=== PATIENT | female | born 1980 | race African-American/Black ===

== ENCOUNTER 2017-03-30 15:18 | Inpatient (IN) | payer OTHER ==
[2017-03-30 16:18] VITALS: BMI 29.3
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
[2017-03-30] MEDS ORDERED: METHADONE HCL 10 MG TABLET (FOR DETOX USE ONLY) PO ONE ×2 (19:45→23:00)
[2017-03-30] MEDS ORDERED: MENTHOL/PHENOL 1 EACH UD MM PRN (19:45)
[2017-03-30] MEDS ORDERED: MAGNESIUM CITRATE 300 ML BOTTLE PO PRN (19:45)
[2017-03-30] MEDS ORDERED: P-EPHED 60MG/TRIPROLIDI 2.5MG TABLET PO PRN (19:45)
[2017-03-30] MEDS ORDERED: MAG HYDROX/AL HYDROX/SIMETH 30 ML UNIT-DOSE CUP PO PRN (19:45)
[2017-03-30] MEDS ORDERED: MAGNESIUM HYDROX 2400MG/30ML ORAL SUSPENSION 30 ML CUP PO PRN (19:45)
[2017-03-30] MEDS ORDERED: IBUPROFEN 400 MG TABLET (FP) PO PRN (19:45)
[2017-03-30] MEDS ORDERED: chlordiazePOXIDE HCL 25 MG CAPSULE PO PRN (19:45)
[2017-03-30] MEDS ORDERED: LOPERAMIDE HCL 2 MG CAPSULE PO PRN (19:45)
[2017-03-30] MEDS ORDERED: guaiFENesin/D-METHORPHAN HB 10 ML UNIT-DOSE CUPS PO PRN (19:45)
[2017-03-30] MEDS ORDERED: chlordiazePOXIDE HCL 25 MG CAPSULE PO ONE (19:45)
[2017-03-30] MEDS: ACETAMINOPHEN 325 MG TABLET (FP) PO PRN (20:37)
[2017-03-30 22:04] LABS: URINE APPEARANCE TURBID; URINE BLOOD NEGATIVE (NEGATIVE); URINE COLOR AMBER; URINE GLUCOSE (UA) NEGATIVE (NEGATIVE); URINE KETONE NEGATIVE (NEGATIVE); URINE LEUK ESTERASE TRACE (NEGATIVE); URINE NITRITE NEGATIVE (NEGATIVE); URINE UROBILINOGEN 4.0 E.U/dl mg/dL (0.2-1.0)
[2017-03-30 22:15] LABS: URINE PROTEIN 1+ (NEGATIVE)
[2017-03-30] MEDS: chlordiazePOXIDE HCL 25 MG CAPSULE PO SCH (22:26)
[2017-03-30] MEDS: THIAMINE HCL 100 MG TABLET (FP) PO SCH (22:26)
[2017-03-30 22:44] LABS: URINE MUCUS MANY; URINE RBC 14 /hpf (0-3); URINE WBC 2 /hpf (3-5)
[2017-03-31] MEDS: chlordiazePOXIDE HCL 25 MG CAPSULE PO SCH ×4 (05:41→22:28)
[2017-03-31] MEDS ORDERED: METHADONE HCL 10 MG TABLET (FOR DETOX USE ONLY) PO SCH (10:00)
[2017-03-31 10:01] LABS: MCH 26.9 pg (25.7-33.7); MCHC 32.2 g/dl (32.0-36.0); MEAN CELL VOLUME 83.6 fl (80-96); MEAN PLT VOLUME 6.8 fl (7.5-11.1); PLATELET COUNT 250 K/MM3 (134-434); RDW 22.4 % (11.6-15.6); WHITE BLOOD COUNT 4.2 K/mm3 (4.0-10.0)
[2017-03-31 10:25] LABS: ALBUMIN 2.7 g/dl (3.4-5.0); ALK PHOS 77 U/L (45-117); ANION GAP 5 (8-16); BILIRUBIN,TOTAL 0.4 mg/dL (0.2-1.0); CALCIUM 8.3 mg/dL (8.5-10.1); CO2 30 mmol/L (21-32); CREATININE 0.8 mg/dL (0.55-1.02); GLUCOSE,RANDOM 89 mg/dL (74-106); SGOT/AST 23 U/L (15-37); SGPT/ALT 26 U/L (12-78); TOT PROT 5.9 g/dl (6.4-8.2)
[2017-03-31] MEDS: PRENATAL VITAMINS W/ FOLIC ACID TABLET (FP) PO SCH (10:35)
--- NOTE | 2017-03-31 12:11 | PN ---
S CIWA - CIWA Score Nausea/Vomitin Muscle Tremors: 3 Anxiety: 2 Agitation: 2 Paroxysmal Sweats: 1-Minimal Palms Moist Orientation: 0-Oriented Tacttile Disturbances: 1-Very Mild Itch/Numbness Auditory Disturbances: 1-Very Mild Visual Disturbances: 1-Very Mild Sensitivity Headache: 2-Mild CIWA-Ar Total Score: 16 BHS COWS - Scale Resting Pulse: 1= [place] 81-100 Sweatin= Chills/Flushing Restless Observation: 3= Extraneous Movement Pupil Size: 1= Pupils >than Normal Bone or Joint Aches: 2= Severe Diffuse Aches Runny Nose/ Eye Tearin= Runny Nose/Eyes GI Upset > 30mins: 2= Nausea/Diarrhea Tremor Observation of Outstretched Hands: 2= Slight Tremor Visible Yawning Observation: 1= 1-2x During Session Anxiety or Irritability: 2=Irritable/Anxious Goose Flesh Skin: 0=Smooth Skin COWS Score: 17 S Progress Note (SOAP) Subjective: ALERT,IRRITABLE,ANXIOUS,INTERRUPTED SLEEP,TREMOR,PAIN IN THE BODY AND BACK Objective: 03/31/17 12:08 Vital Signs Temperature 96.4 F L 03/31/17 10:03 Pulse Rate 81 03/31/17 10:03 Respiratory Rate 20 03/31/17 10:03 Blood Pressure 119/69 03/31/17 10:03 O2 Sat by Pulse Oximetry (%) EKG NSR,PROLONG QT Laboratory Last Values WBC 4.2 K/mm3 (4.0-10.0) 03/31/17 08:00 RBC 3.88 M/mm3 (3.60-5.2) 03/31/17 08:00 Hgb 10.4 GM/dL (10.7-15.3) L 03/31/17 08:00 Hct 32.4 % (32.4-45.2) 03/31/17 08:00 MCV 83.6 fl (80-96) 03/31/17 08:00 MCH 26.9 pg (25.7-33.7) 03/31/17 08:00 MCHC 32.2 g/dl (32.0-36.0) 03/31/17 08:00 RDW 22.4 % (11.6-15.6) H 03/31/17 08:00 Plt Count 250 K/MM3 (134-434) 03/31/17 08:00 MPV 6.8 fl (7.5-11.1) L 03/31/17 08:00 Sodium 139 mmol/L (136-145) 03/31/17 08:00 Potassium 4.0 mmol/L (3.5-5.1) 03/31/17 08:00 Chloride 104 mmol/L (98-107) 03/31/17 08:00 Carbon Dioxide 30 mmol/L (21-32) 03/31/17 08:00 Anion Gap 5 (8-16) L 03/31/17 08:00 BUN 12 mg/dL (7-18) D 03/31/17 08:00 Creatinine 0.8 mg/dL (0.55-1.02) 03/31/17 08:00 Creat Clearance w eGFR > 60 (>60) 03/31/17 08:00 Random Glucose 89 mg/dL (74-106) 03/31/17 08:00 Calcium 8.3 mg/dL (8.5-10.1) L 03/31/17 08:00 Total Bilirubin 0.4 mg/dL (0.2-1.0) D 03/31/17 08:00 AST 23 U/L (15-37) D 03/31/17 08:00 ALT 26 U/L (12-78) D 03/31/17 08:00 Alkaline Phosphatase 77 U/L (45-117) 03/31/17 08:00 Total Protein 5.9 g/dl (6.4-8.2) L D 03/31/17 08:00 Albumin 2.7 g/dl (3.4-5.0) L D 03/31/17 08:00 Urine Color [place] 03/30/17 21:45 Urine Appearance Turbid 03/30/17 21:45 Urine pH 5.0 (5.0-8.0) 03/30/17 21:45 Ur Specific [place] >= 1.030 (1.005-1.025) H 03/30/17 21:45 Urine Protein 1+ (NEGATIVE) H 03/30/17 21:45 Urine Glucose (UA) Negative (NEGATIVE) 03/30/17 21:45 Urine Ketones Negative (NEGATIVE) 03/30/17 21:45 Urine Blood Negative (NEGATIVE) 03/30/17 21:45 Urine Nitrite Negative (NEGATIVE) 03/30/17 21:45 Urine Bilirubin 2.0 (NEGATIVE) 03/30/17 21:45 Urine Urobilinogen 4.0 e.u/dl mg/dL (0.2-1.0) H 03/30/17 21:45 Ur Leukocyte Esterase Trace (NEGATIVE) 03/30/17 21:45 Urine RBC 14 /hpf (0-3) 03/30/17 21:45 Urine WBC 2 /hpf (3-5) 03/30/17 21:45 Ur Epithelial Cells Many /hpf (FEW) 03/30/17 21:45 Urine Mucus Many 03/30/17 21:45 Assessment: 03/31/17 12:10 WITHDRAWAL SYMPTOM Plan: CONTINUE DETOX
--- NOTE | 2017-03-31 16:32 | CONSULT ---
[facility] Psychiatric Consult - Data Date of interview: 03/31/17 Admission source: [facility] Identifying data: Readmission to [facility] for this 36 y/o AA female seeking detox treatment on for heroin,cocaine (crack),cannabis and alcohol dependence.Patient is single without children,domiciled and self-reported as employed. Substance Abuse History: Discussed with the patient.She incates that this [facility] report is accurate : Smoking Cessation. Smoking history: Current every day smoker. Have you smoked in the past 12 months: Yes. Aproximately how many cigarettes per day: 4. Hx Chewing Tobacco Use: No. Initiated information on smoking cessation: Yes. 'Breaking Loose' booklet given: 03/30/17. - Substance & Tx. History. Hx Alcohol Use: Yes. Hx Substance Use: Yes. Substance Use Type : Cocaine, Heroin, Marijuana. Hx Substance Use Treatment: Yes (DETOX: 2013; DENIES RECENT REHAB ADMISSION ). - Substances Abused. Heroin. Route: Inhalation. Frequency: Daily. Amount used: 3 bags. Age of first use: 26. Date of Last Use: 03/30/17. Crack. Route: Smoking. Frequency: Daily. Amount used: 1 bag. Age of first use: 35. Date of Last Use: 03/29/17. Marijuana/Hashish. Route: Smoking. Frequency: 1-3 times last 30 days. Amount used: 1 bag. Age of first use: 26. Date of Last Use: 03/28/17 Medical History: Bronchial asthma and anemia. Psychiatric History: Patient is a disorganized and unreliable historian.She admits to one psychiatric hospitalization.Discharged two months ago from [facility]] in [place].Diagnosed with Schizoaffective Disorder.Ms Brambila reports that she was managed with a regimen of geodon + lexapro (doses nor recalled).Did not follow with OPD care and did not fill her scripts.Patient endorses one suicide attempt via wrist-cutting years ago. Physical/Sexual Abuse/Trauma History: Patient denies history of abuse. Additional Comment: Urine Drug Screen Results: THC-Marijuana, RUPAL-Cocaine, OPI- Opiates, TCA-Tricyclic Antidepressant.Noted. Mental Status Exam - Mental Status Exam Alert and Oriented to: Time, Place, Person Cognitive Function: Grossly Intact Patient Appearance: Unkempt, Disheveled (obese) Mood: Nervous, Withdrawn Affect: Normal Range Patient Behavior: Sedated, Fatigued, Cooperative Speech Pattern: Clear Voice Loudness: Normal Thought Process: Goal Oriented Thought Disorder: Not Present Hallucinations: Denies Suicidal Ideation: Denies Homicidal Ideation: Denies Insight/Judgement: Poor Sleep: Well Appetite: Good Muscle strength/Tone: Normal Gait/Station: Normal Psychiatric Findings - Problem List ([place] 1, 2,3) (1) Alcohol dependence with uncomplicated withdrawal Current Visit: Yes Status: Acute (2) Cannabis dependence Current Visit: Yes Status: Acute (3) Opioid dependence with withdrawal Current Visit: Yes Status: Chronic (4) Cocaine dependence, uncomplicated Current Visit: Yes Status: Acute (5) Substance induced mood disorder Current Visit: Yes Status: Acute (6) Asthma Current Visit: Yes Status: Chronic (7) Schizoaffective disorder Current Visit: Yes Status: Chronic Comment: Self-report. - Initial Treatment Plan Initial Treatment Plan: Psychoeducation.Detoxification.Review of pharmacy claims : not helpful.No information.Medications to be resumed when information becomes available.Observation.
[2017-03-31] MEDS: ACETAMINOPHEN 325 MG TABLET (FP) PO PRN (18:20)
[2017-03-31] MEDS: THIAMINE HCL 100 MG TABLET (FP) PO SCH (22:27)
[2017-03-31] MEDS: diphenhydrAMINE HCL 50 MG CAPSULE PO PRN (22:28)
[2017-04-01] MEDS: chlordiazePOXIDE HCL 25 MG CAPSULE PO SCH ×3 (05:50→17:39)
--- NOTE | 2017-04-01 08:10 | EKG ---
Test Reason : Blood Pressure : / mmHG Vent. Rate : 077 BPM Atrial Rate : 077 BPM P-R Int : 148 ms QRS Dur : 076 ms QT Int : 430 ms P-R-T Axes : 064 068 059 degrees QTc Int : 486 ms NORMAL SINUS RHYTHM POSSIBLE LEFT ATRIAL ENLARGEMENT PROLONGED QT ABNORMAL ECG NO PREVIOUS ECGS AVAILABLE Confirmed by JENAE CEJA, CAMDEN ([id number]) on 04/01/2017 8:09:40 AM Referred By: Toney Hodges Confirmed By:CAMDEN EMANUEL MD
[2017-04-01] MEDS: ACETAMINOPHEN 325 MG TABLET (FP) PO PRN (09:55)
[2017-04-01] MEDS: PRENATAL VITAMINS W/ FOLIC ACID TABLET (FP) PO SCH (10:25)
[2017-04-01] MEDS: METHADONE HCL 5 MG TABLET (FOR DETOX USE ONLY) PO SCH (10:25)
--- NOTE | 2017-04-01 11:34 | PN ---
S CIWA - CIWA Score Nausea/Vomitin Muscle Tremors: 3 Anxiety: 2 Agitation: 2 Paroxysmal Sweats: 1-Minimal Palms Moist Orientation: 0-Oriented Tacttile Disturbances: 1-Very Mild Itch/Numbness Auditory Disturbances: 1-Very Mild Visual Disturbances: 1-Very Mild Sensitivity Headache: 2-Mild CIWA-Ar Total Score: 16 BHS COWS - Scale Resting Pulse: 1= [place] 81-100 Sweatin= Chills/Flushing Restless Observation: 3= Extraneous Movement Pupil Size: 1= Pupils >than Normal Bone or Joint Aches: 2= Severe Diffuse Aches Runny Nose/ Eye Tearin= Nasal Congestion GI Upset > 30mins: 2= Nausea/Diarrhea Tremor Observation of Outstretched Hands: 2= Slight Tremor Visible Yawning Observation: 1= 1-2x During Session Anxiety or Irritability: 2=Irritable/Anxious Goose Flesh Skin: 0=Smooth Skin COWS Score: 16 S Progress Note (SOAP) Subjective: ALERT,IRRITABLE,ANXIOUS,INTERRUPTED SLEEP,TREMOR,PAIN IN THE BODY Objective: 04/01/17 11:32 Vital Signs Temperature 98.2 F 04/01/17 10:27 Pulse Rate 89 04/01/17 10:27 Respiratory Rate 16 04/01/17 10:27 Blood Pressure 123/74 04/01/17 10:27 O2 Sat by Pulse Oximetry (%) Laboratory Last Values WBC 4.2 K/mm3 (4.0-10.0) 03/31/17 08:00 RBC 3.88 M/mm3 (3.60-5.2) 03/31/17 08:00 Hgb 10.4 GM/dL (10.7-15.3) L 03/31/17 08:00 Hct 32.4 % (32.4-45.2) 03/31/17 08:00 MCV 83.6 fl (80-96) 03/31/17 08:00 MCH 26.9 pg (25.7-33.7) 03/31/17 08:00 MCHC 32.2 g/dl (32.0-36.0) 03/31/17 08:00 RDW 22.4 % (11.6-15.6) H 03/31/17 08:00 Plt Count 250 K/MM3 (134-434) 03/31/17 08:00 MPV 6.8 fl (7.5-11.1) L 03/31/17 08:00 Sodium 139 mmol/L (136-145) 03/31/17 08:00 Potassium 4.0 mmol/L (3.5-5.1) 03/31/17 08:00 Chloride 104 mmol/L (98-107) 03/31/17 08:00 Carbon Dioxide 30 mmol/L (21-32) 03/31/17 08:00 Anion Gap 5 (8-16) L 03/31/17 08:00 BUN 12 mg/dL (7-18) D 03/31/17 08:00 Creatinine 0.8 mg/dL (0.55-1.02) 03/31/17 08:00 Creat Clearance w eGFR > 60 (>60) 03/31/17 08:00 Random Glucose 89 mg/dL (74-106) 03/31/17 08:00 Calcium 8.3 mg/dL (8.5-10.1) L 03/31/17 08:00 Total Bilirubin 0.4 mg/dL (0.2-1.0) D 03/31/17 08:00 AST 23 U/L (15-37) D 03/31/17 08:00 ALT 26 U/L (12-78) D 03/31/17 08:00 Alkaline Phosphatase 77 U/L (45-117) 03/31/17 08:00 Total Protein 5.9 g/dl (6.4-8.2) L D 03/31/17 08:00 Albumin 2.7 g/dl (3.4-5.0) L D 03/31/17 08:00 Urine Color Cori 03/30/17 21:45 Urine Appearance Turbid 03/30/17 21:45 Urine pH 5.0 (5.0-8.0) 03/30/17 21:45 Ur Specific [place] >= 1.030 (1.005-1.025) H 03/30/17 21:45 Urine Protein 1+ (NEGATIVE) H 03/30/17 21:45 Urine Glucose (UA) Negative (NEGATIVE) 03/30/17 21:45 Urine Ketones Negative (NEGATIVE) 03/30/17 21:45 Urine Blood Negative (NEGATIVE) 03/30/17 21:45 Urine Nitrite Negative (NEGATIVE) 03/30/17 21:45 Urine Bilirubin 2.0 (NEGATIVE) 03/30/17 21:45 Urine Urobilinogen 4.0 e.u/dl mg/dL (0.2-1.0) H 03/30/17 21:45 Ur Leukocyte Esterase Trace (NEGATIVE) 03/30/17 21:45 Urine RBC 14 /hpf (0-3) 03/30/17 21:45 Urine WBC 2 /hpf (3-5) 03/30/17 21:45 Ur Epithelial Cells Many /hpf (FEW) 03/30/17 21:45 Urine Mucus Many 03/30/17 21:45 RPR Titer Nonreactive (NONREACTIVE) 03/31/17 08:00 Assessment: 04/01/17 11:34 WITHDRAWAL SYMPTOM Plan: CONTINUE DETOX
[2017-04-01] MEDS: THIAMINE HCL 100 MG TABLET (FP) PO SCH (22:49)
[2017-04-01] MEDS: chlordiazePOXIDE 5 MG CAPSULE PO SCH (22:49)
[2017-04-01] MEDS: diphenhydrAMINE HCL 50 MG CAPSULE PO PRN (22:49)
[2017-04-02] MEDS: chlordiazePOXIDE 5 MG CAPSULE PO SCH ×3 (06:55→17:47)
[2017-04-02] MEDS: PRENATAL VITAMINS W/ FOLIC ACID TABLET (FP) PO SCH (10:43)
[2017-04-02] MEDS: METHADONE HCL 5 MG TABLET (FOR DETOX USE ONLY) PO SCH (10:44)
[2017-04-02] MEDS: ACETAMINOPHEN 325 MG TABLET (FP) PO PRN (10:46)
--- NOTE | 2017-04-02 10:55 | PN ---
S Progress Note (SOAP) Subjective: alert,irritable,anxious,interrupted sleep,pain in body,back Objective: 04/02/17 10:54 Vital Signs Temperature 97.9 F 04/02/17 09:52 Pulse Rate 98 H 04/02/17 09:52 Respiratory Rate 16 04/02/17 09:52 Blood Pressure 138/81 04/02/17 09:52 O2 Sat by Pulse Oximetry (%) Assessment: 04/02/17 10:54 withdrawal symptom Plan: continue detox,psychiatric reevaluation for medications
[2017-04-02] MEDS: chlordiazePOXIDE HCL 10 MG CAPSULE PO SCH (22:16)
[2017-04-02] MEDS: THIAMINE HCL 100 MG TABLET (FP) PO SCH (22:16)
[2017-04-02] MEDS: diphenhydrAMINE HCL 50 MG CAPSULE PO PRN (22:17)
[2017-04-03] MEDS: chlordiazePOXIDE HCL 10 MG CAPSULE PO SCH ×3 (05:46→16:50)
[2017-04-03] MEDS: ACETAMINOPHEN 325 MG TABLET (FP) PO PRN (07:43)
[2017-04-03] MEDS ORDERED: METHADONE HCL 10 MG TABLET (FOR DETOX USE ONLY) PO SCH (10:00)
--- NOTE | 2017-04-03 10:21 | PN ---
S Progress Note (SOAP) Subjective: ALERT,IRRITABLE,ANXIOUS,INTERRUPTED SLEEP Objective: 04/03/17 10:20 Vital Signs Temperature 96.6 F L 04/03/17 06:00 Pulse Rate 99 H 04/03/17 06:00 Respiratory Rate 18 04/03/17 06:00 Blood Pressure 138/82 04/03/17 06:00 O2 Sat by Pulse Oximetry (%) Assessment: 04/03/17 10:21 WITHDRAWAL SYMPTOM Plan: CONTINUE DETOX
[2017-04-03] MEDS: PRENATAL VITAMINS W/ FOLIC ACID TABLET (FP) PO SCH (10:28)
[2017-04-03] MEDS: hydrOXYzine PAMOATE 50 MG CAPSULE (FP) PO PRN ×2 (16:50→22:15)
[2017-04-03] MEDS: THIAMINE HCL 100 MG TABLET (FP) PO SCH (22:15)
[2017-04-04] MEDS ORDERED: METHADONE HCL 5 MG TABLET (FOR DETOX USE ONLY) PO SCH (06:00)
--- NOTE | 2017-04-04 08:24 | DS ---
[facility] Detox Discharge Summary Admission Date: 03/30/17 Discharge Date: 04/04/17 - History Present History: Alcohol Dependence, Cannabis Dependence, Cocaine Dependence, Opioid Dependence Additional Comments: FOLLOW UP WITH AFTER CARE PROGRAM ARRANGEMENT Pertinent Past History: ASTHMA SCHIZOAFFECTIVE DISORDER - Physical Exam Results Vital Signs: Vital Signs Temperature 98.4 F 04/04/17 06:20 Pulse Rate 89 04/04/17 06:20 Respiratory Rate 18 04/04/17 06:20 Blood Pressure 134/69 04/04/17 06:20 O2 Sat by Pulse Oximetry (%) Pertinent Admission Physical Exam Findings: WITHDRAWAL SYMPTOM - Treatment Hospital Course: Detox Protocol Followed, Detoxed Safely, Responded well, Discharged Condition Good, Rehab Referral Accepted Patient has Accepted a Rehab Referral to: [facility] - Medication Discharge Medications: Ambulatory Orders NK [No Known Home Medication] 09/10/13 - Diagnosis (1) Alcohol dependence with uncomplicated withdrawal Current Visit: Yes Status: Acute (2) Cannabis dependence Current Visit: Yes Status: Acute (3) Cocaine dependence, uncomplicated Current Visit: Yes Status: Acute (4) Asthma Current Visit: Yes Status: Chronic (5) Opioid dependence with withdrawal Current Visit: Yes Status: Chronic (6) Schizoaffective disorder Current Visit: Yes Status: Chronic - AMA Did Patient Leave Against Medical Advice: No
[2017-04-04 09:56] VITALS: BP 124/72; PULSE 108; TEMP 98.2
== END 2017-04-04 10:37 | disposition home or self-care (01) | DRG 897 ==
LOC: YASAS 15:18 → Y6N 18:57
PROVIDERS: ADMIT Internal Medicine; ATTEND Internal Medicine
PROC: HZ2ZZZZ Detoxification Services for Substance Abuse Treatment (ICD-10-PCS; principal; 2017-03-30)
DX: F11.23 Opioid dependence with withdrawal (principal); F14.20 Cocaine dependence, uncomplicated; F10.230 Alcohol dependence with withdrawal, uncomplicated; F12.20 Cannabis dependence, uncomplicated; F17.210 Nicotine dependence, cigarettes, uncomplicated; F25.9 Schizoaffective disorder, unspecified; F19.24 Other psychoactive substance dependence with psychoactive substance-induced mood disorder; J45.909 Unspecified asthma, uncomplicated; D64.9 Anemia, unspecified; R00.0 Tachycardia, unspecified; Z88.0 Allergy status to penicillin
CPT/HCPCS: 36415; 80053; 81003; 81015; 85027; 86593; 93005; 93010

== ENCOUNTER 2019-03-05 17:25 | Inpatient (IN) | payer OTHER ==
[2019-03-05 18:05] VITALS: BMI 29.9
--- NOTE | 2019-03-05 20:23 | HP ---
CIWA Score - Admission Criteria OASAS Guidelines: Admission for Medically Managed Detox: Requires at least one of the followin. CIWA greater than 12 2. Seizures within the past 24 hours 3. Delirium tremens within the past 24 hours 4. Hallucinations within the past 24 hours 5. Acute intervention needed for co occurring medical disorder 6. Acute intervention needed for co occurring psychiatric disorder 7. Severe withdrawal that cannot be handled at a lower level of care (continued vomiting, continued diarrhea, abnormal vital signs) requiring intravenous medication and/or fluids 8. Admission ROS S - HPI Chief Complaint: alcohol and crack /cocaine rehab Allergies/Adverse Reactions: Allergies Allergy/AdvReac Type Severity Reaction Status Date / Time cephalexin monohydrate Allergy Severe Swelling Verified 03/05/19 17:48 [From Keflex] Penicillins Allergy Severe Rash Verified 03/05/19 17:48 History of Present Illness: Patient is a 38 yo female is here seeking inpatient rehab for alcohol and crack /cocaine. Reports prior hx of heroin dependence and reports currently in remission. Patient reports completed alcohol detox at [facility]. PMHX: Asthma (childhood), Anemia. Psych: bipolar Denies SI/HI or hx suicide attempt x 1 nine years ago. Exam Limitations: No Limitations - Ebola screening Have you traveled outside of the country in the last 21 days: No Have you had contact with anyone from an Ebola affected area: No Do you have a fever: No - Review of Systems Constitutional: No Symptoms Reported EENT: reports: No Symptoms Reported Respiratory: reports: No Symptoms reported Cardiac: reports: No Symptoms Reported GI: reports: No Symptoms Reported : reports: No Symptoms Reported Musculoskeletal: reports: No Symptoms Reported Integumentary: reports: Pruritus Neuro: reports: Headache Endocrine: reports: No Symptoms Reported Hematology: reports: No Symptoms Reported Psychiatric: reports: Orientated x3, Anxious Other Systems: Reviewed and Negative Patient History - Patient Medical History Hx Anemia: Yes (Not on iron medication) Hx Asthma: Yes (On Albuterol) Hx Chronic Obstructive Pulmonary Disease (COPD): No Hx Cancer: No Hx Cardiac Disorders: No Hx Congestive Heart Failure: No Hx Hypertension: No Hx Hypercholesterolemia: No Hx Pacemaker: No HX Cerebrovascular Accident: No Hx Seizures: No Hx Dementia: No Hx Diabetes: No Hx Gastrointestinal Disorders: No Hx Liver Disease: No Hx Genitourinary Disorders: No Hx Sexually Transmitted Disorders: No Hx Renal Disease (ESRD): No Hx Thyroid Disease: No Hx Human Immunodeficiency Virus (HIV): No (Negative 2016) Hx Hepatitis C: No Hx Depression: Yes (Risperdal) Hx Suicide Attempt: Yes (x1 in 1999) Hx Bipolar Disorder: Yes Hx Schizophrenia: No - Patient Surgical History Past Surgical History: No Hx Neurologic Surgery: No Hx Cataract Extraction: No Hx Cardiac Surgery: No Hx Lung Surgery: No Hx Breast Surgery: No Hx Breast Biopsy: No Hx Abdominal Surgery: No Hx Appendectomy: No Hx Cholecystectomy: No Hx Genitourinary Surgery: No Hx Section: No Hx Orthopedic Surgery: No Anesthesia Reaction: No - PPD History Documented Results: Negative w/o proof Date: 04/01/17 Results: 0 PPD to be Administered?: No - Reproductive History Last Menstrual Period: 10/14/17 Patient : No - Smoking Cessation Smoking history: Current every day smoker Have you smoked in the past 12 months: Yes Aproximately how many cigarettes per day: 8 Hx Chewing Tobacco Use: No Initiated information on smoking cessation: Yes 'Breaking Loose' booklet given: 03/05/19 - Substance & Tx. History Hx Alcohol Use: Yes Hx Substance Use: Yes Substance Use Type: Alcohol, Cocaine Hx Substance Use Treatment: Yes ([facility] completed ETOH detox today ) - Substances abused Crack Substance route: Smoking Frequency: 3-6 times per week Amount used: 500 hundred Age of first use: 33 Date of last use: 03/05/19 Alcohol Substance route: Oral Frequency: Daily Amount used: 8 beers and 5 shots of liqour Age of first use: 15 Date of last use: 03/04/19 Cocaine Substance route: Inhalation Frequency: 3-6 times per week Amount used: 50 dollars Age of first use: 23 Date of last use: 03/03/19 Family Disease History - Family Disease History Family Disease History: Diabetes: Father, Other: Mother (Alcoholic) Admission Physical Exam S - Vital Signs Vital Signs: Vital Signs - 24 hr 03/05/19 03/05/19 17:53 19:35 Temperature 97.7 F 97.7 F Pulse Rate 75 75 Respiratory 16 16 Rate Blood Pressure 112/80 112/80 - Physical General Appearance: Yes: Appropriately Dressed, Irritable HEENTM: Yes: EOMI, Hearing grossly Normal, Normal ENT Inspection, Normocephalic , Normal Voice, MEG[place], Pharynx Normal, Tm's normal Respiratory: Yes: Chest Non-Tender, Lungs Clear, Normal Breath Sounds, No Respiratory Distress, No Accessory Muscle Use Neck: Yes: Within Normal Limits Breast: Yes: Breast Exam Deferred Cardiology: Yes: Regular Rhythm, Regular Rate Abdominal: Yes: Normal Bowel Sounds, Non Tender, Flat, Soft Genitourinary: Yes: Within Normal Limits Back: Yes: Normal Inspection Musculoskeletal: Yes: full range of Motion, Gait Steady, Pelvis Stable Extremities: Yes: Normal Capillary Refill, Normal Inspection, Normal Range of Motion, Delayed Capillary Refill Neurological: Yes: focus puller II-XII NML intact, Fully Oriented, Alert, Motor Strength 5/5, Depressed Affect Integumentary: Yes: Normal Color, Other (+ lesion multiple non infected on back of righ ear lobe and bilateral lower extremites) Lymphatic: Yes: Within Normal Limits - Diagnostic (1) Psychiatric disorder Current Visit: Yes Status: Suspected (2) Cocaine dependence, uncomplicated Current Visit: Yes Status: Acute (3) Alcohol dependence Current Visit: Yes Status: Chronic Qualifiers: Substance use status: uncomplicated Qualified Code(s): F10.20 - Alcohol dependence, uncomplicated (4) Anemia Current Visit: Yes Status: Chronic Qualifiers: Anemia type: iron deficiency (5) Asthma Current Visit: Yes Status: Chronic (6) Cocaine dependence Current Visit: Yes Status: Chronic Qualifiers: Substance use status: uncomplicated Qualified Code(s): F14.20 - Cocaine dependence, uncomplicated (7) Pruritus Current Visit: Yes Status: Acute Breathalyzer - Breathalyzer Breathalyzer: 0 Urine Drug Screen - Test Device Lot number: [id number] Expiration date: 12/24/20 - Control Is test valid?: Yes - Results Drug screen NEGATIVE: No Urine drug screen results: THC-Marijuana, RUPAL-Cocaine, BZO-Benzodiazepines Inpatient Rehab Admission - Rehab Decision to Admit Inpatient rehab admission?: Yes - Initial Determination Are CD services needed?: Yes Free of communicable disease: Yes Not in need of hospitalization: Yes - Rehab Admission Criteria Previous failed treatment: Yes Poor recovery environment: Yes Comorbidities: Yes Lacks judgement: Yes Patient is meeting Inpatient Rehab admission criteria:: Yes
[2019-03-05] MEDS ORDERED: P-EPHED 60MG/TRIPROLIDI 2.5MG TABLET PO PRN (20:33)
[2019-03-05] MEDS ORDERED: LOPERAMIDE HCL 2 MG CAPSULE PO PRN (20:33)
[2019-03-05] MEDS ORDERED: NICOTINE POLACRILEX 2 MG GUM BC PRN (20:33)
[2019-03-05] MEDS ORDERED: MAGNESIUM HYDROX 2400MG/30ML ORAL SUSPENSION 30 ML CUP PO PRN (20:33)
[2019-03-05] MEDS ORDERED: MAG HYDROX/AL HYDROX/SIMETH 30 ML UNIT-DOSE CUP PO PRN (20:33)
[2019-03-05] MEDS ORDERED: guaiFENesin 200 MG/10 ML 10 ML UNIT-DOSE CUPS PO PRN (20:33)
[2019-03-05] MEDS ORDERED: MAGNESIUM CITRATE 300 ML BOTTLE PO PRN (20:33)
[2019-03-05] MEDS ORDERED: MENTHOL/PHENOL 1 EACH UD MM PRN (20:33)
[2019-03-05] MEDS: MELATONIN 5 MG TABLETS PO PRN (21:49)
[2019-03-05] MEDS: THIAMINE HCL 100 MG TABLET (FP) PO SCH (21:50)
[2019-03-05] MEDS: hydrOXYzine HCL 25 MG TABLET (FP) PO PRN (21:50)
[2019-03-05] MEDS: IBUPROFEN 400 MG TABLET (FP) PO PRN (22:02)
[2019-03-06] MEDS: IBUPROFEN 400 MG TABLET (FP) PO PRN (06:58)
--- NOTE | 2019-03-06 07:02 | PN ---
S Progress Note Note: PATIENT COMPLAINS OF NAUSEA. DENIES VOMITING AT THIS TIME Vital Signs Temperature 97.8 F 03/06/19 06:41 Pulse Rate 76 03/06/19 06:41 Respiratory Rate 17 03/06/19 06:41 Blood Pressure 106/75 03/06/19 06:41 O2 Sat by Pulse Oximetry (%) ACTION: ONDANSETRON (ZOFRAN ODT) 4MG SL ORDERED
[2019-03-06] MEDS ORDERED: ONDANSETRON *ODT* 4 MG TABLET SL ONE (08:00)
[2019-03-06] MEDS: PRENATAL VITAMINS W/ FOLIC ACID TABLET (FP) PO SCH (09:16)
[2019-03-06] MEDS: NICOTINE 14 MG/24 HOURS TOPICAL PATCH TD SCH (09:17)
[2019-03-06 10:14] LABS: HEMATOCRIT 27.7 % (32.4-45.2); HEMOGLOBIN 8.7 GM/dL (10.7-15.3); MCH 22.3 pg (25.7-33.7); MCHC 31.5 g/dl (32.0-36.0); MEAN PLT VOLUME 6.9 fl (7.5-11.1); RDW 28.3 % (11.6-15.6); WHITE BLOOD COUNT 2.9 K/mm3 (4.0-10.0)
[2019-03-06 10:35] LABS: ALBUMIN 3.2 g/dl (3.4-5.0); BILIRUBIN,TOTAL 0.5 mg/dL (0.2-1); BLOOD UREA NITROGEN 14.3 mg/dL (7-18); CALCIUM 8.5 mg/dL (8.5-10.1); CREATININE 0.8 mg/dL (0.55-1.3); POTASSIUM 4.3 mmol/L (3.5-5.1); TOT PROT 6.6 g/dl (6.4-8.2)
[2019-03-06 10:38] LABS: PLATELET COUNT 349 K/MM3 (134-434)
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
[2019-03-06] MEDS: hydrOXYzine HCL 25 MG TABLET (FP) PO PRN ×2 (12:34→17:41)
[2019-03-06] MEDS: ACETAMINOPHEN 325 MG TABLET (FP) PO PRN ×2 (12:34→17:41)
[2019-03-06] MEDS ORDERED: SIMETHICONE 80 MG TAB.CHEW (FP) PO PRN (12:39)
[2019-03-06] MEDS: THIAMINE HCL 100 MG TABLET (FP) PO SCH (22:01)
[2019-03-06] MEDS: OLANZapine 5 MG TABLET PO SCH (22:01)
[2019-03-06] MEDS: NAPROXEN 500 MG TABLET (FP) PO SCH (22:01)
[2019-03-06 22:54] LABS: EPI CELLS 1.2 /HPF (0-5/HPF); HYALINE CASTS 0 /lpf (0-8); PH,URINE 5.5 (5.0-8.0); URINE APPEARANCE CLEAR; URINE BACTERIA 11.5 /hpf (NEGATIVE); URINE BILIRUBIN NEGATIVE (NEGATIVE); URINE COLOR YELLOW; URINE GLUCOSE (UA) NEGATIVE (NEGATIVE); URINE KETONE NEGATIVE (NEGATIVE); URINE LEUK ESTERASE NEGATIVE (NEGATIVE); URINE NITRITE NEGATIVE (NEGATIVE); URINE PROTEIN NEGATIVE (NEGATIVE); URINE RBC 216 /hpf (0-4); URINE WBC 1 /hpf (0-5)
[2019-03-07] MEDS: PRENATAL VITAMINS W/ FOLIC ACID TABLET (FP) PO SCH (09:49)
[2019-03-07] MEDS: NICOTINE 14 MG/24 HOURS TOPICAL PATCH TD SCH (09:49)
[2019-03-07] MEDS: NAPROXEN 500 MG TABLET (FP) PO SCH ×2 (09:49→21:27)
[2019-03-07] MEDS ORDERED: PT OWN MED DRAWER 7, Y5N ONE (09:50)
[2019-03-07] MEDS: hydrOXYzine HCL 25 MG TABLET (FP) PO PRN (09:50)
--- NOTE | 2019-03-07 13:39 | PN ---
[facility] Progress Note Note: Laboratory Tests 03/05/19 03/06/19 03/06/19 19:35 07:00 07:00 WBC 2.9 L RBC 3.90 Hgb 8.7 L Hct 27.7 L MCV 71.0 L MCH 22.3 L MCHC 31.5 L RDW 28.3 H Plt Count 349 MPV 6.9 L Sodium 140 Potassium 4.3 Chloride 107 Carbon Dioxide 29 Anion Gap 4 L BUN 14.3 Creatinine 0.8 Est GFR (CKD-EPI)AfAm 109.16 Est GFR (CKD-EPI)NonAf 94.18 Random Glucose 81 Calcium 8.5 Total Bilirubin 0.5 AST 23 ALT 22 Alkaline Phosphatase 64 Total Protein 6.6 Albumin 3.2 L Urine Color Urine Appearance Urine pH Ur Specific [place] Urine Protein Urine Glucose (UA) Urine Ketones Urine Blood Urine Nitrite Urine Bilirubin Urine Urobilinogen Ur Leukocyte Esterase Urine WBC (Auto) Urine RBC (Auto) Urine Casts (Auto) U Epithel Cells (Auto) Urine Bacteria (Auto) POC Urine HCG, Qual Negative RPR Titer TB Test (QFT) Nil TB Test (QFT) Mitogen TB Test (QFT) Antigen TB Test (QFT) TB Positive Criteria 03/06/19 03/06/19 03/06/19 07:00 07:00 18:21 WBC RBC Hgb Hct MCV MCH MCHC RDW Plt Count MPV Sodium Potassium Chloride Carbon Dioxide Anion Gap BUN Creatinine Est GFR (CKD-EPI)AfAm Est GFR (CKD-EPI)NonAf Random Glucose Calcium Total Bilirubin AST ALT Alkaline Phosphatase Total Protein Albumin Urine Color Yellow Urine Appearance Clear Urine pH 5.5 D Ur Specific [place] 1.022 Urine Protein Negative Urine Glucose (UA) Negative Urine Ketones Negative Urine Blood 3+ H Urine Nitrite Negative Urine Bilirubin Negative Urine Urobilinogen 1.0 Ur Leukocyte Esterase Negative Urine WBC (Auto) 1 Urine RBC (Auto) 216 Urine Casts (Auto) 0 U Epithel Cells (Auto) 1.2 Urine Bacteria (Auto) 11.5 POC Urine HCG, Qual RPR Titer Nonreactive TB Test (QFT) Nil Cancelled TB Test (QFT) Mitogen Cancelled TB Test (QFT) Antigen Cancelled TB Test (QFT) Cancelled TB Positive Criteria Cancelled Vital Signs Temperature 97.8 F 03/06/19 06:41 Pulse Rate 76 03/06/19 06:41 Respiratory Rate 18 03/07/19 07:10 Blood Pressure 106/75 03/06/19 06:41 O2 Sat by Pulse Oximetry (%) Labs reviewed. Patient currently has menstrual cycle which it explains blood in urine. Patient also has hx of anemia. Patient denies chest pain, sob and dizziness PE; alert and oriented x 3 skin warm and dry +perrla, eoms intact bl, conjunctivae pink bl ext full rom, amb ad stacia a/p: anemia continue vitamins repeat cbc on 03/10/19 monitor clinically
[2019-03-07] MEDS: DOCUSATE SODIUM 100 MG CAPSULE (FP) PO SCH (21:27)
[2019-03-07] MEDS: THIAMINE HCL 100 MG TABLET (FP) PO SCH (21:27)
[2019-03-07] MEDS: OLANZapine 5 MG TABLET PO SCH (21:27)
[2019-03-08] MEDS: DOCUSATE SODIUM 100 MG CAPSULE (FP) PO SCH ×3 (06:52→22:13)
[2019-03-08] MEDS: PRENATAL VITAMINS W/ FOLIC ACID TABLET (FP) PO SCH (09:06)
[2019-03-08] MEDS: NICOTINE 14 MG/24 HOURS TOPICAL PATCH TD SCH (09:06)
[2019-03-08] MEDS: NAPROXEN 500 MG TABLET (FP) PO SCH ×2 (09:06→22:13)
--- NOTE | 2019-03-08 09:31 | EKG ---
Test Reason : Blood Pressure : / mmHG Vent. Rate : 067 BPM Atrial Rate : 067 BPM P-R Int : 156 ms QRS Dur : 074 ms QT Int : 440 ms P-R-T Axes : 057 056 051 degrees QTc Int : 464 ms NORMAL SINUS RHYTHM WITH SINUS ARRHYTHMIA NORMAL ECG WHEN COMPARED WITH ECG OF 31-OCT-2017 22:14, VENT. RATE HAS DECREASED BY 44 BPM Confirmed by JENAE CEJA, CAMDEN ([id number]) on 03/08/2019 9:31:36 AM Referred By: Confirmed By:CAMDEN EMANUEL MD
[2019-03-08] MEDS: ACETAMINOPHEN 325 MG TABLET (FP) PO PRN (13:10)
--- NOTE | 2019-03-08 14:16 | PN ---
Psychiatric Progress Note Vital Signs: Vital Signs Period Temp Pulse Resp BP Sys/Boss Pulse Ox Last 24 Hr 18-18 Date of Session: 03/08/19 Chief Complaint:: " I didn't ask to see you." HPI: Patient admitted to 3E for alcohol and cocaine dependence co-morbid schizoaffective disorder. ROS: Patient is coherent, alert and oriented X3. Current Medications: Active Medications Generic Name Dose Route Start Last Admin Trade Name Freq PRN Reason Stop Dose Admin Acetaminophen 650 mg 03/05/19 20:33 03/08/19 13:10 Tylenol - PO 650 mg Q4H PRN Administration FEVER Al Hydroxide/Mg Hydroxide 30 ml 03/05/19 20:33 Mylanta Oral Suspension - PO Q6H PRN DYSPEPSIA Docusate Sodium 100 mg 03/07/19 22:00 03/08/19 13:08 Colace - PO 100 mg TID ANAHI Administration Eucalyptus/Menthol/Phenol/Sorbitol 1 each 03/05/19 20:33 Cepastat Lozenge - MM Q4H PRN SORE THROAT Guaifenesin 10 ml 03/05/19 20:33 Robitussin - PO Q6H PRN COUGH Hydroxyzine HCl 25 mg 03/05/19 20:39 03/07/19 09:50 Atarax - PO 25 mg Q12H PRN Administration FOR ITCHING Loperamide HCl 4 mg 03/05/19 20:33 Imodium - PO Q6H PRN DIARRHEA Magnesium Citrate 300 ml 03/05/19 20:33 Citroma - PO Q48H PRN CONSTIPATION Magnesium Hydroxide 30 ml 03/05/19 20:33 03/07/19 22:19 Milk Of Magnesia - PO 30 ml DAILY PRN Administration CONSTIPATION Melatonin 5 mg 03/05/19 22:00 03/05/19 21:49 Melatonin PO 5 mg HS PRN Administration INSOMNIA Naproxen 500 mg 03/06/19 22:00 03/08/19 09:06 Naprosyn - PO 500 mg BID ANAHI Administration Nicotine 14 mg 03/06/19 10:00 03/08/19 09:06 Nicoderm Patch - TD 14 mg DAILY ANAHI Administration Nicotine Polacrilex 2 mg 03/05/19 20:33 Nicorette Gum - BC Q2H PRN NICOTINE REPLACEMENT RX Olanzapine 5 mg 03/06/19 22:00 03/07/19 21:27 Zyprexa - PO 5 mg HS ANAHI Administration Multivit/Folic Acid/Iron 1 tab 03/06/19 10:00 03/08/19 09:06 Vitamins (Sjr) - PO 1 tab DAILY ANAHI Administration Pseudoephedrine/Triprolidine 1 combo 03/05/19 20:33 Actifed - PO TID PRN NASAL CONGESTION Simethicone 80 mg 03/06/19 12:39 03/07/19 09:50 Mylicon - PO 80 mg QID PRN Administration GAS Thiamine HCl 100 mg 03/05/19 22:00 03/07/19 21:27 Vitamin B1 - PO 100 mg HS ANAHI Administration Medication(s) Change(s): No. Current Side Effect: No Lab tests ordered: No Lab tests reviewed: Yes Provider note:: Casino Runner approached patient for psychiatric consultation. Patient stated to financial underwriter, " I didn't ask to see you but we can talk." Patient focused on being acceped to care home house after discharge. She reports feeling slightly irritable and states the vistaril is not effective. Patient prefers to accept benadryl and is requesting benadryl 50mg. Casino Runner recommended benadryl 25 mg q6h and patient replied, " No thats not enough. Its ok, you can leave how it is." Patient became slightly irritable concerning her situation of not having a home , lack of family support and vistaril medication dosage. Patient c/o constipation and was recommended by financial underwriter to drink water. Patient denies auditory/visual hallucinations and paranoia. States she feels safe on the unit. Casino Runner attempted to increase zyprexa 5mg to 7.5mg but patient refused. Stated zyprexa 5mg is working well for her. Patient denies auditory/visual hallucinations, suicidal/homicidal ideation. Total face to face time:: 30 Mental Status Exam - Mental Status Exam Alert and Oriented to: Time, Place, Person Cognitive Function: Good Patient Appearance: Well Groomed Mood: Irritable Affect: Mood Congruent Patient Behavior: Cooperative Speech Pattern: Appropriate Voice Loudness: Normal Thought Process: Goal Oriented Thought Disorder: Not Present Hallucinations: Denies Suicidal Ideation: Denies Homicidal Ideation: Denies Insight/Judgement: Poor Sleep: Fair Appetite: Fair Muscle strength/Tone: Normal Gait/Station: Normal Psychiatric Treatment Plan - Problem List (1) Alcohol dependence Current Visit: Yes Qualifiers: Substance use status: uncomplicated Qualified Code(s): F10.20 - Alcohol dependence, uncomplicated (2) Cocaine dependence Current Visit: Yes (3) Nicotine dependence Current Visit: Yes (4) Schizoaffective disorder Current Visit: Yes Comment: Self-report. (5) Substance-induced sleep disorder Current Visit: Yes
[2019-03-08] MEDS: hydrOXYzine HCL 25 MG TABLET (FP) PO PRN (17:36)
[2019-03-08] MEDS: THIAMINE HCL 100 MG TABLET (FP) PO SCH (22:13)
[2019-03-08] MEDS: OLANZapine 5 MG TABLET PO SCH (22:13)
[2019-03-09] MEDS ORDERED: PT OWN MED DRAWER 7, Y5N ONE (03:20)
[2019-03-09] MEDS: DOCUSATE SODIUM 100 MG CAPSULE (FP) PO SCH ×3 (07:37→21:23)
[2019-03-09] MEDS: NICOTINE 14 MG/24 HOURS TOPICAL PATCH TD SCH (10:07)
[2019-03-09] MEDS: PRENATAL VITAMINS W/ FOLIC ACID TABLET (FP) PO SCH (10:07)
[2019-03-09] MEDS: NAPROXEN 500 MG TABLET (FP) PO SCH ×2 (10:07→21:22)
[2019-03-09] MEDS: hydrOXYzine HCL 25 MG TABLET (FP) PO PRN ×2 (13:41→21:22)
[2019-03-09] MEDS: ACETAMINOPHEN 325 MG TABLET (FP) PO PRN (18:22)
[2019-03-09] MEDS: OLANZapine 5 MG TABLET PO SCH (21:22)
[2019-03-09] MEDS: THIAMINE HCL 100 MG TABLET (FP) PO SCH (21:22)
[2019-03-10] MEDS: DOCUSATE SODIUM 100 MG CAPSULE (FP) PO SCH ×3 (06:42→21:12)
[2019-03-10] MEDS: PRENATAL VITAMINS W/ FOLIC ACID TABLET (FP) PO SCH (10:40)
[2019-03-10] MEDS: NAPROXEN 500 MG TABLET (FP) PO SCH ×2 (10:41→21:12)
[2019-03-10] MEDS: NICOTINE 14 MG/24 HOURS TOPICAL PATCH TD SCH (10:41)
[2019-03-10 14:47] LABS: BASO % 0.4 % (0-2.0); EOS % 2.7 % (0-4.5); HEMOGLOBIN 8.8 GM/dL (10.7-15.3); LYMPH % 42.5 % (8-40); MCH 22.7 pg (25.7-33.7); MCHC 31.5 g/dl (32.0-36.0); MEAN PLT VOLUME 7.1 fl (7.5-11.1); MONO % 8.8 % (3.8-10.2); NEUT % 45.6 % (42.8-82.8); PLATELET COUNT 331 K/MM3 (134-434); RBC 3.88 M/mm3 (3.60-5.2); RDW 28.1 % (11.6-15.6); WHITE BLOOD COUNT 3.2 K/mm3 (4.0-10.0)
[2019-03-10] MEDS: hydrOXYzine HCL 25 MG TABLET (FP) PO PRN (19:52)
[2019-03-10] MEDS: ACETAMINOPHEN 325 MG TABLET (FP) PO PRN (19:52)
[2019-03-10 19:59] LABS: ANISOCYTOSIS 2+
[2019-03-10] MEDS: OLANZapine 5 MG TABLET PO SCH (21:12)
[2019-03-10] MEDS: THIAMINE HCL 100 MG TABLET (FP) PO SCH (21:12)
[2019-03-11] MEDS: DOCUSATE SODIUM 100 MG CAPSULE (FP) PO SCH ×3 (07:13→21:54)
[2019-03-11] MEDS: NICOTINE 14 MG/24 HOURS TOPICAL PATCH TD SCH (09:29)
[2019-03-11] MEDS: NAPROXEN 500 MG TABLET (FP) PO SCH ×2 (09:29→21:53)
[2019-03-11] MEDS: PRENATAL VITAMINS W/ FOLIC ACID TABLET (FP) PO SCH (09:29)
[2019-03-11] MEDS: FERROUS SO4 325 MG TABLET (FP) PO SCH ×2 (12:49→17:50)
[2019-03-11] MEDS: hydrOXYzine HCL 25 MG TABLET (FP) PO PRN (17:50)
[2019-03-11] MEDS: THIAMINE HCL 100 MG TABLET (FP) PO SCH (21:53)
[2019-03-11] MEDS: OLANZapine 5 MG TABLET PO SCH (21:53)
[2019-03-11] MEDS: MELATONIN 5 MG TABLETS PO PRN (21:54)
[2019-03-12] MEDS: ACETAMINOPHEN 325 MG TABLET (FP) PO PRN (01:39)
[2019-03-12 01:43] VITALS: PULSE 80
[2019-03-12 06:51] VITALS: BP 118/80; TEMP 97.9
[2019-03-12] MEDS: DOCUSATE SODIUM 100 MG CAPSULE (FP) PO SCH ×3 (06:53→21:15)
[2019-03-12] MEDS: FERROUS SO4 325 MG TABLET (FP) PO SCH ×3 (07:25→17:35)
[2019-03-12] MEDS: NICOTINE 14 MG/24 HOURS TOPICAL PATCH TD SCH (09:44)
[2019-03-12] MEDS: NAPROXEN 500 MG TABLET (FP) PO SCH ×2 (09:44→21:14)
[2019-03-12] MEDS: PRENATAL VITAMINS W/ FOLIC ACID TABLET (FP) PO SCH (09:44)
[2019-03-12] MEDS ORDERED: PT OWN MED DRAWER 7, Y5N ONE (15:49)
[2019-03-12] MEDS: hydrOXYzine HCL 25 MG TABLET (FP) PO PRN ×2 (15:50→21:14)
[2019-03-12] MEDS: THIAMINE HCL 100 MG TABLET (FP) PO SCH (21:14)
[2019-03-12] MEDS: OLANZapine 5 MG TABLET PO SCH (21:14)
[2019-03-13] MEDS: ACETAMINOPHEN 325 MG TABLET (FP) PO PRN (02:46)
[2019-03-13] MEDS: DOCUSATE SODIUM 100 MG CAPSULE (FP) PO SCH (07:04)
[2019-03-13] MEDS: FERROUS SO4 325 MG TABLET (FP) PO SCH (07:20)
--- NOTE | 2019-03-13 09:16 | PN ---
S Progress Note Note: Psychiatric nurse practitioner note: Patient scheduled for discharge today. A 30 day prescription of Zyprexa 5mg was electronically sent to [facility], [address] [place] [address], [id number].
--- NOTE | 2019-03-13 09:17 | PN ---
[facility] Progress Note (SOAP) Subjective: Patient to be discharged today. Hospital Course: Patient attended groups, had individual sessions with the counselor, was adherent to the treatment plan and the medication regimen. Objective: General: In no apparent distress, resting comfortably in bed HEENTM: Yes: Normocephalic, Normal Voice, PERRLA, Pharynx Normal, Tm's normal Respiratory: Respirations easy and unlabored Lungs Clear, No Accessory Muscle Use Neck: supple Breast: Breast Exam Deferred Cardiology: Regular Rhythm, Regular Rate, S1, S2 audible Abdominal: Positive Bowel Sounds, Non Tender, Flat, Soft Back: spine aligned, non-tender Musculoskeletal: ll range of Motion, Gait Steady, Pelvis Stable Extremities: Brisk Capillary Refill, Full Range of Motion Neurological: electronic assembler group leader II-XII intact, Fully Oriented, Alert, Motor Strength 5/5, Integumentary: clear, warm, dry, color consistent throughout trunk and extremities. Lymphatic: non-palpable 03/13/19 09:16 CBC, BMP 03/10/19 11:20 03/06/19 07:00 Vital Signs (72 hours) 03/11/19 03/11/19 03/11/19 00:30 03:30 07:18 Temperature 97.8 F Pulse Rate 92 H Respiratory 16 16 18 Rate Blood Pressure 116/79 03/12/19 03/12/19 03/12/19 00:30 01:42 03:30 Temperature Pulse Rate 80 Respiratory 18 18 18 Rate Blood Pressure 106/69 03/12/19 03/13/19 03/13/19 06:51 03:30 07:26 Temperature 97.9 F Pulse Rate 80 Respiratory 18 18 18 Rate Blood Pressure 118/80 03/13/19 09:18 Assessment: Medically stable for discharge Discharge Dx: opioid Dependence Cannabis Dependence Cocaine Dependence Asthma Anemia 03/13/19 09:22 Plan: Continuation of on-going care: Patient will receive aftercare and primary care at [place] [facility]. Prescription sent to pharmacy.
[2019-03-13] MEDS: NAPROXEN 500 MG TABLET (FP) PO SCH (09:30)
[2019-03-13] MEDS: NICOTINE 14 MG/24 HOURS TOPICAL PATCH TD SCH (09:30)
[2019-03-13] MEDS: PRENATAL VITAMINS W/ FOLIC ACID TABLET (FP) PO SCH (09:31)
== END 2019-03-13 09:40 | disposition home or self-care (01) | DRG 895 ==
LOC: YASAS 17:25 → Y3E 20:50
PROVIDERS: ADMIT Neuromusculoskeletal Medicine & OMM; ATTEND Neuromusculoskeletal Medicine & OMM
PROC: HZ42ZZZ Group Counseling for Substance Abuse Treatment, Cognitive-Behavioral (ICD-10-PCS; principal; 2019-03-05)
DX: F10.20 Alcohol dependence, uncomplicated (principal); F14.20 Cocaine dependence, uncomplicated; F19.282 Other psychoactive substance dependence with psychoactive substance-induced sleep disorder; F17.210 Nicotine dependence, cigarettes, uncomplicated; F25.9 Schizoaffective disorder, unspecified; F31.9 Bipolar disorder, unspecified; D50.9 Iron deficiency anemia, unspecified; J45.909 Unspecified asthma, uncomplicated; L29.8 Other pruritus; Z88.0 Allergy status to penicillin; Z88.1 Allergy status to other antibiotic agents; Z91.5 Personal history of self-harm; Z59.0 Homelessness
CPT/HCPCS: 36415; 80053; 81003; 81025; 85025; 85027; 86480; 86593; 93005; 93010; Q0162

== ENCOUNTER 2019-09-09 17:52 | Inpatient (IN) | payer MEDICARE, OTHER ==
[2019-09-09 19:20] VITALS: BMI 28.2
--- NOTE | 2019-09-10 01:41 | HP ---
CIWA Score Nausea/Vomitin (vomiting x 4) Muscle Tremors: 4-Moderate,w/Arms Extend Anxiety: 4-Mod. Anxious/Guarded Agitation: 1-Slight > Activity Paroxysmal Sweats: 2 Orientation: 0-Oriented Tacttile Disturbances: 0-None Auditory Disturbances: 0-None Visual Disturbances: 0-None Headache: 0-None Present CIWA-Ar Total Score: 14 - Admission Criteria OASAS Guidelines: Admission for Medically Managed Detox: Requires at least one of the followin. CIWA greater than 12 2. Seizures within the past 24 hours 3. Delirium tremens within the past 24 hours 4. Hallucinations within the past 24 hours 5. Acute intervention needed for co occurring medical disorder 6. Acute intervention needed for co occurring psychiatric disorder 7. Severe withdrawal that cannot be handled at a lower level of care (continued vomiting, continued diarrhea, abnormal vital signs) requiring intravenous medication and/or fluids 8. Admitting History and Physical - Past Medical History ...LMP: 10/14/17 - Smoking History Smoking history: Current every day smoker Have you smoked in the past 12 months: Yes Aproximately how many cigarettes per day: 8 - Alcohol/Substance Use Hx Alcohol Use: Yes Admission ROS [facility] Chief Complaint: Alcohol withdrawal symptoms Allergies/Adverse Reactions: Allergies Allergy/AdvReac Type Severity Reaction Status Date / Time cephalexin monohydrate Allergy Severe Swelling Verified 09/09/19 19:03 [From Keflex] Penicillins Allergy Severe Rash Verified 09/09/19 19:03 History of Present Illness: 38 years old female with a long history of alcohol dependence is seeking admission to detox. Patient has had multiple admissions to [facility] and reports insignificant period of sobriety. She reports medical history of anemia, asthma and psych. history of Bipolar disorder and depression. She reports suicide attempt in 1999 and denies suicidal ideation at this time Exam Limitations: No Limitations - Ebola screening Have you traveled outside of the country in the last 21 days: No (N) Have you had contact with anyone from an Ebola affected area: No Do you have a fever: No - Review of Systems Constitutional: Chills, Malaise, Night Sweats, Changes in sleep EENT: reports: No Symptoms Reported Respiratory: reports: Cough Cardiac: reports: No Symptoms Reported GI: reports: Poor Appetite, Poor Fluid Intake, Vomiting : reports: No Symptoms Reported Musculoskeletal: reports: No Symptoms Reported Integumentary: reports: Dryness, Flushing Neuro: reports: Tremors Endocrine: reports: No Symptoms Reported Hematology: reports: No Symptoms Reported Psychiatric: reports: Mood/Affect Appropiate, Orientated x3 Other Systems: Reviewed and Negative Patient History - Patient Medical History Hx Anemia: Yes (Not on iron medication) Hx Asthma: Yes (On Albuterol) Hx Chronic Obstructive Pulmonary Disease (COPD): No Hx Cancer: No Hx Cardiac Disorders: No Hx Congestive Heart Failure: No Hx Hypertension: No Hx Hypercholesterolemia: No Hx Pacemaker: No HX Cerebrovascular Accident: No Hx Seizures: No Hx Dementia: No Hx Diabetes: No Hx Gastrointestinal Disorders: No Hx Liver Disease: No Hx Genitourinary Disorders: No Hx Sexually Transmitted Disorders: No Hx Renal Disease (ESRD): No Hx Thyroid Disease: No Hx Human Immunodeficiency Virus (HIV): No (Negative 2016) Hx Hepatitis C: No Hx Depression: Yes (Risperdal) Hx Suicide Attempt: Yes (x1 in 1999) Hx Bipolar Disorder: Yes Hx Schizophrenia: No - Patient Surgical History Past Surgical History: No Hx Neurologic Surgery: No Hx Cataract Extraction: No Hx Cardiac Surgery: No Hx Lung Surgery: No Hx Breast Surgery: No Hx Breast Biopsy: No Hx Abdominal Surgery: No Hx Appendectomy: No Hx Cholecystectomy: No Hx Genitourinary Surgery: No Hx Section: No Hx Orthopedic Surgery: No Anesthesia Reaction: No - PPD History Date: 04/01/17 Results: 0 - Reproductive History Last Menstrual Period: 10/14/17 - Smoking Cessation Smoking history: Current every day smoker Have you smoked in the past 12 months: Yes Aproximately how many cigarettes per day: 8 Hx Chewing Tobacco Use: No Initiated information on smoking cessation: Yes 'Breaking Loose' booklet given: 09/10/19 - Substance & Tx. History Hx Alcohol Use: Yes Hx Substance Use: Yes Substance Use Type: Alcohol, Marijuana Hx Substance Use Treatment: Yes ([facility]) - Substances abused Alcohol Substance route: Oral Frequency: Daily Amount used: 19 beers Age of first use: 14 Date of last use: 09/08/19 Admission Physical Exam BHS - Vital Signs Vital Signs: Vital Signs - 24 hr 09/09/19 19:12 Temperature 97.3 F L Pulse Rate 86 Respiratory 16 Rate Blood Pressure 125/84 - Physical General Appearance: Yes: Moderate Distress, Tremorous, Sweating, Anxious HEENTM: Yes: Within Normal Limits Respiratory: Yes: Lungs Clear, Normal Breath Sounds, No Respiratory Distress Neck: Yes: Supple Breast: Yes: Breast Exam Deferred Cardiology: Yes: Regular Rhythm, Regular Rate Abdominal: Yes: Normal Bowel Sounds Genitourinary: Yes: Within Normal Limits Back: Yes: Normal Inspection Musculoskeletal: Yes: Within Normal Limits Extremities: Yes: Tremors Neurological: Yes: Alert, Normal Mood/Affect Integumentary: Yes: Warm Lymphatic: Yes: Within Normal Limits - Diagnostic (1) Cocaine dependence, uncomplicated Current Visit: No Status: Acute (2) Alcohol dependence with uncomplicated withdrawal Current Visit: Yes Status: Acute (3) Anemia Current Visit: Yes Status: Chronic Qualifiers: Anemia type: iron deficiency (4) Asthma Current Visit: Yes Status: Chronic (5) Nicotine dependence Current Visit: Yes Status: Chronic Comment: .. Cleared for Admission S - Detox or Rehab [facility] Level of Care: Medically Managed Detox Regimen/Protocol: Librium Breathalyzer - Breathalyzer Breathalyzer: 0 Urine Drug Screen - Test Device Lot number: [id number] Expiration date: 03/26/21 - Control Is test valid?: Yes - Results Drug screen NEGATIVE: No Urine drug screen results: THC-Marijuana, RUPAL-Cocaine, BZO-Benzodiazepines Inpatient Rehab Admission - Rehab Decision to Admit Inpatient rehab admission?: No
[2019-09-10] MEDS ORDERED: MAG HYDROX/AL HYDROX/SIMETH 30 ML UNIT-DOSE CUP PO PRN (02:40)
[2019-09-10] MEDS ORDERED: MAGNESIUM HYDROX 2400MG/30ML ORAL SUSPENSION 30 ML CUP PO PRN (02:40)
[2019-09-10] MEDS ORDERED: IBUPROFEN 400 MG TABLET (FP) PO PRN (02:40)
[2019-09-10] MEDS ORDERED: MAGNESIUM CITRATE 300 ML BOTTLE PO PRN (02:40)
[2019-09-10] MEDS ORDERED: ACETAMINOPHEN 325 MG TABLET (FP) PO PRN ×2 (02:40)
[2019-09-10] MEDS ORDERED: MENTHOL/PHENOL 1 EACH UD MM PRN (02:40)
[2019-09-10] MEDS ORDERED: chlordiazePOXIDE HCL 25 MG CAPSULE PO PRN (02:40)
[2019-09-10] MEDS ORDERED: METHOCARBAMOL 500 MG TABLET PO PRN (02:40)
[2019-09-10] MEDS ORDERED: MELATONIN 5 MG TABLETS PO PRN (02:40)
[2019-09-10] MEDS ORDERED: BISMUTH SUBSALICYLATE 524 MG/30 ML UD PO PRN (02:40)
[2019-09-10] MEDS ORDERED: hydrOXYzine PAMOATE 25 MG CAPSULE (FP) PO PRN (02:40)
[2019-09-10] MEDS ORDERED: NICOTINE POLACRILEX 2 MG GUM BUC PRN (02:40)
[2019-09-10] MEDS: chlordiazePOXIDE HCL 25 MG CAPSULE PO SCH ×4 (04:13→22:43)
--- NOTE | 2019-09-10 10:07 | EKG ---
Test Reason : Blood Pressure : / mmHG Vent. Rate : 082 BPM Atrial Rate : 082 BPM P-R Int : 158 ms QRS Dur : 074 ms QT Int : 400 ms P-R-T Axes : 066 058 048 degrees QTc Int : 467 ms NORMAL SINUS RHYTHM NORMAL ECG WHEN COMPARED WITH ECG OF 05-MAR-2019 21:03, NO SIGNIFICANT CHANGE WAS FOUND Confirmed by CAMDEN EMANUEL MD ([id number]) on 09/10/2019 10:06:55 AM Referred By: Confirmed By:CAMDEN EMANUEL MD
[2019-09-10] MEDS: PRENATAL VITAMINS W/ FOLIC ACID TABLET (FP) PO SCH (10:21)
[2019-09-10] MEDS: NICOTINE 21 MG/24 HOURS TOPICAL PATCH TD SCH (10:21)
--- NOTE | 2019-09-10 11:02 | CONSULT ---
[facility] Psychiatric Consult - Data Date of interview: 09/10/19 Admission source: [facility] Identifying data: Revisit to [facility] and admission to [address] [place] [address] for this 38 y/o AA female self-referred for detoxification treatment. JENNI issues : heroin, cocaine (crack), cannabis, nicotine, alcohol. Patient is single without children , undomiciled (jail), unemployed and supported on [facility] benefits. Substance Abuse History: Discussed with the patient. Details in current [facility] report as follows : Smoking history: Current every day smoker. Have you smoked in the past 12 months: Yes. Aproximately how many cigarettes per day: 8. Hx Chewing Tobacco Use: No. Initiated information on smoking cessation: Yes. ' Breaking Loose' booklet given: 09/10/19. - Substance & Tx. History. Hx Alcohol Use: Yes. Hx Substance Use: Yes. Substance Use Type: Alcohol, Marijuana. Hx Substance Use Treatment: Yes ([facility]). - Substances abused. Alcohol. Substance route: Oral. Frequency: Daily. Amount used: 19 beers. Age of first use: 14. Date of last use: 09/08/19 Medical History: Medical profile is remarkable for bronchial asthma and anemia. Psychiatric History: Patient presents with a history of multiple psychiatric hospitalizations ([facility] in [place], [facility], [facility]). Early onset of mental illness (age 9). Initially diagnosed with ADHD in childhood. Diagnosis has been revised to Schizoaffective Disorder (age 19). Ms Brambila is currently followed by [facility] in the [place] for medication management (olanzapine 10 mg/bid + benadryl 50 mg/hs). Patient admits to " a couple " of suicide attempts via overdose with pills + wrist-cutting years ago). Physical/Sexual Abuse/Trauma History: Not discussed. Patient declines. Additional Comment: Urine drug screen results: THC-Marijuana, RUPAL-Cocaine, BZO- Benzodiazepines. Noted. Mental Status Exam - Mental Status Exam Alert and Oriented to: Time, Place, Person Cognitive Function: Good Patient Appearance: Well Groomed Mood: Nervous, Withdrawn Affect: Mood Congruent, Constricted Patient Behavior: Fatigued, Appropriate, Cooperative Speech Pattern: Clear Voice Loudness: Normal Thought Process: Goal Oriented Thought Disorder: Not Present Hallucinations: Denies Suicidal Ideation: Denies Homicidal Ideation: Denies Insight/Judgement: Poor Sleep: Poorly, Difficulty falling asleep Appetite: Good Gait/Station: Normal Psychiatric Findings - Problem List ([place] 1, 2,3) (1) Alcohol dependence with uncomplicated withdrawal Current Visit: Yes Status: Acute (2) Cocaine dependence Current Visit: Yes Status: Acute Comment: .. (3) Nicotine dependence Current Visit: Yes Status: Chronic Comment: .. (4) Cannabis dependence Current Visit: Yes Status: Chronic (5) Substance induced mood disorder Current Visit: Yes Status: Chronic (6) Schizoaffective disorder Current Visit: Yes Status: Chronic Comment: Self-report. (7) Insomnia Current Visit: Yes Status: Acute - Initial Treatment Plan Initial Treatment Plan: Psychoeducation. Sleep hygiene. Detoxification. Support. Medications resumed as : olanzapine 10 mg po bid + benadryl 50 mg po hs. Side effects/benefits of both drugs are discussed with the patient. Consent (verbal) obtained from patient. Observation.
--- NOTE | 2019-09-10 13:59 | PN ---
S CIWA - CIWA Score Nausea/Vomitin-Mild Nausea/No Vomiting Muscle Tremors: 1-None Visible, but [place] Anxiety: 2 Agitation: 1-Slight > Activity Paroxysmal Sweats: 2 Orientation: 0-Oriented Tacttile Disturbances: 2-Mild Itch/Numbness/Burn Auditory Disturbances: 0-None Visual Disturbances: 0-None Headache: 0-None Present CIWA-Ar Total Score: 9 BHS Progress Note (SOAP) Subjective: not better , feels weak, interrupted sleep, sweats Objective: 09/10/19 13:59 Vital Signs Temperature 98.1 F 09/10/19 13:19 Pulse Rate 103 H 09/10/19 13:19 Respiratory Rate 18 09/10/19 13:19 Blood Pressure 125/82 09/10/19 13:19 O2 Sat by Pulse Oximetry (%) Laboratory Tests 09/10/19 00:23 POC Urine HCG, Qual Negative 09/10/19 14:00 f/up with cmp/cbc pt aox3 lying in bed in nad. Assessment: 09/10/19 14:01 withdrawal Plan: cont detox increase fluids obtain cmp/cbc results
[2019-09-10] MEDS ORDERED: diphenhydrAMINE HCL 25 MG CAPSULE (FP) PO ONE (22:00)
[2019-09-10] MEDS: diphenhydrAMINE HCL 50 MG CAPSULE PO SCH (22:43)
[2019-09-10] MEDS: THIAMINE HCL 100 MG TABLET (FP) PO SCH (22:43)
[2019-09-10] MEDS: OLANZapine 10 MG TABLET PO SCH (22:43)
[2019-09-11] MEDS: chlordiazePOXIDE HCL 25 MG CAPSULE PO SCH ×4 (06:04→22:42)
[2019-09-11] MEDS: PRENATAL VITAMINS W/ FOLIC ACID TABLET (FP) PO SCH (10:25)
[2019-09-11] MEDS: NICOTINE 21 MG/24 HOURS TOPICAL PATCH TD SCH (10:25)
[2019-09-11 11:45] LABS: HEMATOCRIT 34.4 % (32.4-45.2); HEMOGLOBIN 11.3 GM/dL (10.7-15.3); MCH 28.2 pg (25.7-33.7); MCHC 32.9 g/dl (32.0-36.0); MEAN CELL VOLUME 85.8 fl (80-96); MEAN PLT VOLUME 7.2 fl (7.5-11.1); PLATELET COUNT 386 K/MM3 (134-434); RBC 4.02 M/mm3 (3.60-5.2); RDW 20.2 % (11.6-15.6); WHITE BLOOD COUNT 3.4 K/mm3 (4.0-10.0)
[2019-09-11 11:50] LABS: ALBUMIN 2.9 g/dl (3.4-5.0); BILIRUBIN,TOTAL 0.4 mg/dL (0.2-1); BLOOD UREA NITROGEN 9.1 mg/dL (7-18); CALCIUM 8.9 mg/dL (8.5-10.1); CREATININE 0.7 mg/dL (0.55-1.3); POTASSIUM 3.5 mmol/L (3.5-5.1); TOT PROT 6.7 g/dl (6.4-8.2)
[2019-09-11] MEDS ORDERED: LOPERAMIDE HCL 2 MG CAPSULE PO ONE (12:47)
[2019-09-11] MEDS ORDERED: ACETAMINOPHEN 325 MG TABLET (FP) PO ONE (12:47)
--- NOTE | 2019-09-11 12:49 | PN ---
[facility] CIWA - CIWA Score Nausea/Vomitin-No Nausea/No Vomiting Muscle Tremors: 2 Anxiety: 3 Agitation: 1-Slight > Activity Paroxysmal Sweats: 2 Orientation: 0-Oriented Tacttile Disturbances: 0-None Auditory Disturbances: 0-None Visual Disturbances: 0-None Headache: 3-Moderate CIWA-Ar Total Score: 11 S Progress Note (SOAP) Subjective: 38 years old female admitted on 09/10/19 for alcohol withdrawal sx management treating with librium detox regimen anxiety anxiousness reports loose stool after breakfast imodium 4 mg po x 1 report moderate headache from alcohol withdrawal tylenal 650 mg po x 1 Objective: 09/11/19 12:50 Vital Signs Temperature 97.6 F 09/11/19 09:10 Pulse Rate 118 H 09/11/19 09:10 Respiratory Rate 18 09/11/19 09:10 Blood Pressure 117/81 09/11/19 09:10 O2 Sat by Pulse Oximetry (%) Laboratory Last Values WBC 3.4 K/mm3 (4.0-10.0) L 09/11/19 09:15 RBC 4.02 M/mm3 (3.60-5.2) 09/11/19 09:15 Hgb 11.3 GM/dL (10.7-15.3) 09/11/19 09:15 Hct 34.4 % (32.4-45.2) D 09/11/19 09:15 MCV 85.8 fl (80-96) 09/11/19 09:15 MCH 28.2 pg (25.7-33.7) D 09/11/19 09:15 MCHC 32.9 g/dl (32.0-36.0) 09/11/19 09:15 RDW 20.2 % (11.6-15.6) H 09/11/19 09:15 Plt Count 386 K/MM3 (134-434) 09/11/19 09:15 MPV 7.2 fl (7.5-11.1) L 09/11/19 09:15 Sodium 139 mmol/L (136-145) 09/11/19 09:15 Potassium 3.5 mmol/L (3.5-5.1) 09/11/19 09:15 Chloride 107 mmol/L (98-107) 09/11/19 09:15 Carbon Dioxide 27 mmol/L (21-32) 09/11/19 09:15 Anion Gap 5 MMOL/L (8-16) L 09/11/19 09:15 BUN 9.1 mg/dL (7-18) 09/11/19 09:15 Creatinine 0.7 mg/dL (0.55-1.3) 09/11/19 09:15 Est GFR (CKD-EPI)AfAm 128.28 09/11/19 09:15 Est GFR (CKD-EPI)NonAf 110.69 09/11/19 09:15 Random Glucose 134 mg/dL (74-106) H 09/11/19 09:15 Calcium 8.9 mg/dL (8.5-10.1) 09/11/19 09:15 Total Bilirubin 0.4 mg/dL (0.2-1) 09/11/19 09:15 AST 24 U/L (15-37) 09/11/19 09:15 ALT 25 U/L (13-61) 09/11/19 09:15 Alkaline Phosphatase 86 U/L (45-117) 09/11/19 09:15 Total Protein 6.7 g/dl (6.4-8.2) 09/11/19 09:15 Albumin 2.9 g/dl (3.4-5.0) L 09/11/19 09:15 POC Urine HCG, Qual Negative 09/10/19 00:23 HIV 1&2 Antibody Screen Negative 09/11/19 09:15 HIV P24 Antigen Negative 09/11/19 09:15 AP elevation denies chest pain no shortness of breath denies dizziness lab noted 09/11/19 12:51 Assessment: 09/11/19 12:51 alcohol withdrawal Plan: librium regimen
[2019-09-11] MEDS ORDERED: diphenhydrAMINE HCL 25 MG CAPSULE (FP) PO ONE (21:38)
[2019-09-11] MEDS: THIAMINE HCL 100 MG TABLET (FP) PO SCH (22:42)
[2019-09-11] MEDS: diphenhydrAMINE HCL 50 MG CAPSULE PO SCH (22:43)
[2019-09-11] MEDS: OLANZapine 10 MG TABLET PO SCH (22:43)
[2019-09-12] MEDS ORDERED: chlordiazePOXIDE HCL 10 MG CAPSULE PO PRN
[2019-09-12] MEDS: chlordiazePOXIDE HCL 10 MG CAPSULE PO SCH ×4 (06:14→22:41)
[2019-09-12] MEDS: PRENATAL VITAMINS W/ FOLIC ACID TABLET (FP) PO SCH (10:50)
[2019-09-12] MEDS: NICOTINE 21 MG/24 HOURS TOPICAL PATCH TD SCH (10:51)
--- NOTE | 2019-09-12 12:19 | PN ---
[facility] CIWA - CIWA Score Nausea/Vomitin Muscle Tremors: 2 Anxiety: 2 Agitation: 1-Slight > Activity Paroxysmal Sweats: 2 Orientation: 0-Oriented Tacttile Disturbances: 1-Very Mild Itch/Numbness Auditory Disturbances: 0-None Visual Disturbances: 0-None Headache: 0-None Present CIWA-Ar Total Score: 11 S Progress Note (SOAP) Subjective: interrupted sleep, sweatscold chills, diarrhea Objective: 09/12/19 12:17 Vital Signs Temperature 97.0 F L 09/12/19 09:04 Pulse Rate 117 H 09/12/19 09:04 Respiratory Rate 09/12/19 09:04 Blood Pressure 119/78 09/12/19 09:04 O2 Sat by Pulse Oximetry (%) Laboratory Tests 09/10/19 09/11/19 09/11/19 00:23 09:15 09:15 WBC 3.4 L RBC 4.02 Hgb 11.3 Hct 34.4 D MCV 85.8 MCH 28.2 D MCHC 32.9 RDW 20.2 H Plt Count 386 MPV 7.2 L Sodium Potassium Chloride Carbon Dioxide Anion Gap BUN Creatinine Est GFR (CKD-EPI)AfAm Est GFR (CKD-EPI)NonAf Random Glucose Calcium Total Bilirubin AST ALT Alkaline Phosphatase Total Protein Albumin POC Urine HCG, Qual Negative RPR Titer HIV 1&2 Antibody Screen Negative HIV P24 Antigen Negative 09/11/19 09/11/19 09:15 09:15 WBC RBC Hgb Hct MCV MCH MCHC RDW Plt Count MPV Sodium 139 Potassium 3.5 Chloride 107 Carbon Dioxide 27 Anion Gap 5 L BUN 9.1 Creatinine 0.7 Est GFR (CKD-EPI)AfAm 128.28 Est GFR (CKD-EPI)NonAf 110.69 Random Glucose 134 H Calcium 8.9 Total Bilirubin 0.4 AST 24 ALT 25 Alkaline Phosphatase 86 Total Protein 6.7 Albumin 2.9 L POC Urine HCG, Qual RPR Titer Nonreactive HIV 1&2 Antibody Screen HIV P24 Antigen pt ox3 , sleepy, lying in bed in nad 09/12/19 12:18 pulse ox on RA 98% 09/12/19 12:30 Assessment: 09/12/19 12:19 withdrawalm sx's tachycardia pt not sob, no cp, po2 98%, previous admisssions similar HR's 09/12/19 12:30 Plan: cont. detox increase fluids cont to monitor HR's
[2019-09-12] MEDS ORDERED: PANTOPRAZOLE 40 MG TABLET PO ONE (13:55)
[2019-09-12] MEDS ORDERED: diphenhydrAMINE HCL 25 MG CAPSULE (FP) PO ONE (21:18)
[2019-09-12] MEDS: OLANZapine 10 MG TABLET PO SCH (22:41)
[2019-09-12] MEDS: diphenhydrAMINE HCL 50 MG CAPSULE PO SCH (22:41)
[2019-09-12] MEDS: THIAMINE HCL 100 MG TABLET (FP) PO SCH (22:42)
[2019-09-13] MEDS: chlordiazePOXIDE HCL 10 MG CAPSULE PO SCH ×2 (05:50→17:52)
[2019-09-13] MEDS ORDERED: PANTOPRAZOLE 40 MG TABLET PO SCH (10:00)
[2019-09-13] MEDS: PRENATAL VITAMINS W/ FOLIC ACID TABLET (FP) PO SCH (10:38)
[2019-09-13] MEDS: NICOTINE 21 MG/24 HOURS TOPICAL PATCH TD SCH (10:39)
--- NOTE | 2019-09-13 12:26 | PN ---
[facility] CIWA - CIWA Score Nausea/Vomitin-No Nausea/No Vomiting Muscle Tremors: None Anxiety: 2 Agitation: 0-Normal Activity Paroxysmal Sweats: 2 Orientation: 0-Oriented Tacttile Disturbances: 0-None Auditory Disturbances: 0-None Visual Disturbances: 0-None Headache: 0-None Present CIWA-Ar Total Score: 4 BHS Progress Note (SOAP) Subjective: c/o mild withdrawal symptoms. Objective: 09/13/19 12:25 Vital Signs 09/13/19 09/13/19 06:42 09:10 Temperature 98.2 F 97.8 F Pulse Rate 112 H 112 H Respiratory 20 18 Rate Blood Pressure 125/82 126/86 Laboratory Last Values WBC 3.4 K/mm3 (4.0-10.0) L 09/11/19 09:15 RBC 4.02 M/mm3 (3.60-5.2) 09/11/19 09:15 Hgb 11.3 GM/dL (10.7-15.3) 09/11/19 09:15 Hct 34.4 % (32.4-45.2) D 09/11/19 09:15 MCV 85.8 fl (80-96) 09/11/19 09:15 MCH 28.2 pg (25.7-33.7) D 09/11/19 09:15 MCHC 32.9 g/dl (32.0-36.0) 09/11/19 09:15 RDW 20.2 % (11.6-15.6) H 09/11/19 09:15 Plt Count 386 K/MM3 (134-434) 09/11/19 09:15 MPV 7.2 fl (7.5-11.1) L 09/11/19 09:15 Sodium 139 mmol/L (136-145) 09/11/19 09:15 Potassium 3.5 mmol/L (3.5-5.1) 09/11/19 09:15 Chloride 107 mmol/L (98-107) 09/11/19 09:15 Carbon Dioxide 27 mmol/L (21-32) 09/11/19 09:15 Anion Gap 5 MMOL/L (8-16) L 09/11/19 09:15 BUN 9.1 mg/dL (7-18) 09/11/19 09:15 Creatinine 0.7 mg/dL (0.55-1.3) 09/11/19 09:15 Est GFR (CKD-EPI)AfAm 128.28 09/11/19 09:15 Est GFR (CKD-EPI)NonAf 110.69 09/11/19 09:15 Random Glucose 134 mg/dL (74-106) H 09/11/19 09:15 Calcium 8.9 mg/dL (8.5-10.1) 09/11/19 09:15 Total Bilirubin 0.4 mg/dL (0.2-1) 09/11/19 09:15 AST 24 U/L (15-37) 09/11/19 09:15 ALT 25 U/L (13-61) 09/11/19 09:15 Alkaline Phosphatase 86 U/L (45-117) 09/11/19 09:15 Total Protein 6.7 g/dl (6.4-8.2) 09/11/19 09:15 Albumin 2.9 g/dl (3.4-5.0) L 09/11/19 09:15 POC Urine HCG, Qual Negative 09/10/19 00:23 RPR Titer Nonreactive (NONREACTIVE) 09/11/19 09:15 HIV 1&2 Antibody Screen Negative 09/11/19 09:15 HIV P24 Antigen Negative 09/11/19 09:15 Labs noted. Assessment: 09/13/19 12:25 AOX3, in no acute respiratory distress. Full ROM, ambulating in the unit. Mild Withdrawal symptoms. For d/c tomorrow. Plan: continue detox. D/C in AM.
[2019-09-13] MEDS ORDERED: diphenhydrAMINE HCL 25 MG CAPSULE (FP) PO ONE (21:27)
[2019-09-13] MEDS: diphenhydrAMINE HCL 50 MG CAPSULE PO SCH (22:55)
[2019-09-13] MEDS: THIAMINE HCL 100 MG TABLET (FP) PO SCH (22:55)
[2019-09-13] MEDS: OLANZapine 10 MG TABLET PO SCH (22:56)
[2019-09-14] MEDS ORDERED: chlordiazePOXIDE HCL 10 MG CAPSULE PO ONE (05:00)
[2019-09-14 06:14] VITALS: BP 127/87; PULSE 107; TEMP 96.9
--- NOTE | 2019-09-14 12:45 | DS ---
[facility] Detox Discharge Summary Admission Date: 09/10/19 Discharge Date: 09/14/19 - History Present History: Alcohol Dependence Additional Comments: 38 years old female admitted on 09/10/19 for alcohol withdrawal sx management treated with librium detox regimen completed librium regimen and tolerated well alert oriented x 3 cardiac s1s2 regular rate rhythm respiratory clear lungs bilaterally on auscultation skin warm and dry - Physical Exam Results Vital Signs: Vital Signs Temperature 96.9 F L 09/14/19 06:13 Pulse Rate 107 H 09/14/19 06:13 Respiratory Rate 20 09/14/19 06:13 Blood Pressure 127/87 09/14/19 06:13 O2 Sat by Pulse Oximetry (%) Pertinent Admission Physical Exam Findings: alcohol withdrawal Laboratory Last Values WBC 3.4 K/mm3 (4.0-10.0) L 09/11/19 09:15 RBC 4.02 M/mm3 (3.60-5.2) 09/11/19 09:15 Hgb 11.3 GM/dL (10.7-15.3) 09/11/19 09:15 Hct 34.4 % (32.4-45.2) D 09/11/19 09:15 MCV 85.8 fl (80-96) 09/11/19 09:15 MCH 28.2 pg (25.7-33.7) D 09/11/19 09:15 MCHC 32.9 g/dl (32.0-36.0) 09/11/19 09:15 RDW 20.2 % (11.6-15.6) H 09/11/19 09:15 Plt Count 386 K/MM3 (134-434) 09/11/19 09:15 MPV 7.2 fl (7.5-11.1) L 09/11/19 09:15 Sodium 139 mmol/L (136-145) 09/11/19 09:15 Potassium 3.5 mmol/L (3.5-5.1) 09/11/19 09:15 Chloride 107 mmol/L (98-107) 09/11/19 09:15 Carbon Dioxide 27 mmol/L (21-32) 09/11/19 09:15 Anion Gap 5 MMOL/L (8-16) L 09/11/19 09:15 BUN 9.1 mg/dL (7-18) 09/11/19 09:15 Creatinine 0.7 mg/dL (0.55-1.3) 09/11/19 09:15 Est GFR (CKD-EPI)AfAm 128.28 09/11/19 09:15 Est GFR (CKD-EPI)NonAf 110.69 09/11/19 09:15 Random Glucose 134 mg/dL (74-106) H 09/11/19 09:15 Calcium 8.9 mg/dL (8.5-10.1) 09/11/19 09:15 Total Bilirubin 0.4 mg/dL (0.2-1) 09/11/19 09:15 AST 24 U/L (15-37) 09/11/19 09:15 ALT 25 U/L (13-61) 09/11/19 09:15 Alkaline Phosphatase 86 U/L (45-117) 09/11/19 09:15 Total Protein 6.7 g/dl (6.4-8.2) 09/11/19 09:15 Albumin 2.9 g/dl (3.4-5.0) L 09/11/19 09:15 POC Urine HCG, Qual Negative 09/10/19 00:23 RPR Titer Nonreactive (NONREACTIVE) 09/11/19 09:15 HIV 1&2 Antibody Screen Negative 09/11/19 09:15 HIV P24 Antigen Negative 09/11/19 09:15 lab notd - Treatment Hospital Course: Detox Protocol Followed, Detoxed Safely, Responded well, Discharged Condition Good, Rehab Referral Accepted Patient [facility] Accept[facility] - Medication Discharge Medications: Ambulatory Orders Diphenhydramine [Benadryl Capsule -] 50 mg PO HS 09/09/19 Olanzapine [ZyPREXA -] 10 mg PO BID 09/09/19 - Diagnosis (1) Alcohol dependence with uncomplicated withdrawal Status: Acute (2) Asthma Status: Chronic (3) Nicotine dependence Status: Acute Qualifiers: Nicotine product type: cigarettes Substance use status: in withdrawal Qualified Code(s): F17.213 - Nicotine dependence, cigarettes, with withdrawal (4) Schizoaffective disorder Status: Chronic Qualifiers: Schizoaffective disorder type: unspecified Qualified Code(s): F25.9 - Schizoaffective disorder, unspecified (5) Substance induced mood disorder Status: Suspected - AMA Did Patient Leave Against Medical Advice: No CIWA Score - CIWA Score Nausea/Vomitin-No Nausea/No Vomiting Muscle Tremors: None Anxiety: 1-Mildly Anxious Agitation: 0-Normal Activity Paroxysmal Sweats: 1-Minimal Palms Moist Orientation: 0-Oriented Tacttile Disturbances: 0-None Auditory Disturbances: 0-None Visual Disturbances: 0-None Headache: 0-None Present CIWA-Ar Total Score: 2
== END 2019-09-14 09:09 | disposition home or self-care (01) | DRG 897 ==
LOC: YASAS 17:52 → Y3N 09-10 02:53
PROVIDERS: ADMIT Allergy & Immunology; ATTEND Allergy & Immunology
PROC: HZ2ZZZZ Detoxification Services for Substance Abuse Treatment (ICD-10-PCS; principal; 2019-09-10)
DX: F10.230 Alcohol dependence with withdrawal, uncomplicated (principal); F14.20 Cocaine dependence, uncomplicated; F12.20 Cannabis dependence, uncomplicated; F17.213 Nicotine dependence, cigarettes, with withdrawal; F25.9 Schizoaffective disorder, unspecified; F19.24 Other psychoactive substance dependence with psychoactive substance-induced mood disorder; J45.909 Unspecified asthma, uncomplicated; R00.0 Tachycardia, unspecified; G47.00 Insomnia, unspecified; Z88.1 Allergy status to other antibiotic agents; Z91.013 Allergy to seafood; Z91.5 Personal history of self-harm; Z59.0 Homelessness
CPT/HCPCS: 36415; 80053; 81025; 85027; 86593; 87389; 93005; 93010

== ENCOUNTER 2020-04-12 08:16 | Inpatient (IN) | payer OTHER ==
--- NOTE | 2020-04-12 08:24 | BHS.RME ---
Substance Use & Tx History - Substance Use History Alcohol Substance amount: 2 bottles of [place] 6 40 oz beers binged Frequency of use: Daily Substance route: Oral Date of Last Use: 04/10/20 Cocaine-Crack Substance amount: $500 Frequency of use: Daily Substance route: Smoking Date of Last Use: 04/10/20 Marijuana/Hashish Substance amount: $5 Frequency of use: Daily Substance route: Smoking Date of Last Use: 04/10/20 Methamphetamine Substance amount: 2 blunts binged Frequency of use: Daily Substance route: Smoking Date of Last Use: 04/10/20 Ecstasy Substance amount: 2 pills Frequency of use: Daily Substance route: Oral Date of Last Use: 04/10/20 Physical/Psych/Mental Status - Behavior General Behavior: Increased activity (restlessness, agitation) Eye Contact: Normal - Cooperativeness Cooperativeness: Cooperative - Thinking Thought Processes: Tight, Logical, Goal Directed - Physical Health Problems Is patient presently having any pain?: No Does patient presently have any injuries (include location): No Does patient currently have a fever: No Is patient : No CIWA Nausea/Vomitin Muscle Tremors: 1-None Visible, but [place] Anxiety: 3 Agitation: 3 Paroxysmal Sweats: 4-Forehead w/Sweat Beads Orientation: 1-Uncertain about Date Tacttile Disturbances: 3-Moderate Itch/Numb/Burn Auditory Disturbances: 0-None Visual Disturbances: 0-None Headache: 2-Mild CIWA-Ar Total Score: 20
[2020-04-12 09:07] VITALS: BMI 34.9
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
[2020-04-12] MEDS ORDERED: chlordiazePOXIDE HCL 25 MG CAPSULE PO PRN (09:50)
[2020-04-12] MEDS ORDERED: MENTHOL/PHENOL 1 EACH UD MM PRN (09:50)
[2020-04-12] MEDS ORDERED: METHOCARBAMOL 500 MG TABLET PO PRN (09:50)
[2020-04-12] MEDS ORDERED: ACETAMINOPHEN 325 MG TABLET (FP) PO PRN ×2 (09:50)
[2020-04-12] MEDS ORDERED: IBUPROFEN 400 MG TABLET (FP) PO PRN (09:50)
[2020-04-12] MEDS ORDERED: NICOTINE POLACRILEX 2 MG GUM BUC PRN (09:50)
[2020-04-12] MEDS ORDERED: BISMUTH SUBSALICYLATE 524 MG/30 ML UD PO PRN (09:50)
[2020-04-12] MEDS ORDERED: MAGNESIUM CITRATE 300 ML BOTTLE PO PRN (09:50)
[2020-04-12] MEDS ORDERED: MAGNESIUM HYDROX 2400MG/30ML ORAL SUSPENSION 30 ML CUP PO PRN (09:50)
[2020-04-12] MEDS ORDERED: ONDANSETRON *ODT* 4 MG TABLET SL ONE (10:30)
[2020-04-12] MEDS: chlordiazePOXIDE HCL 25 MG CAPSULE PO SCH ×3 (10:32→22:52)
[2020-04-12] MEDS: PRENATAL VITAMINS W/ FOLIC ACID TABLET (FP) PO SCH (10:32)
[2020-04-12] MEDS: hydrOXYzine PAMOATE 25 MG CAPSULE (FP) PO SCH ×4 (10:32→22:52)
[2020-04-12] MEDS: NICOTINE 7 MG/24 HOURS TOPICAL PATCH TD SCH (10:34)
--- NOTE | 2020-04-12 15:02 | PN ---
S Progress Note Note: Patent was approached at bedside. She is very drowsy, sedated and therefore could not be seen at this time. Nurse assigned to patient was made aware NB: Patient was seen by auto service writer at [facility] this morning after she returned from [facility] where she was referred from this facility yesterday for evaluation of suicidal ideations. She was psychiatrically cleared after evaluated and observed overnight. She told auto service writer that she expressed suicidal ideations because she was told by staffat [facility] that she would not be admitted since there was no trace of alcohol in her urine.
[2020-04-12 16:00] LABS: HEMATOCRIT 35.5 % (32.4-45.2); HEMOGLOBIN 11.3 GM/dL (10.7-15.3); MCH 26.1 pg (25.7-33.7); MCHC 31.9 g/dl (32.0-36.0); MEAN CELL VOLUME 81.9 fl (80-96); MEAN PLT VOLUME 7.4 fl (7.5-11.1); PLATELET COUNT 287 K/MM3 (134-434); RBC 4.33 M/mm3 (3.60-5.2); RDW 16.9 % (11.6-15.6)
[2020-04-12 16:14] LABS: ALBUMIN 3.5 g/dl (3.4-5.0); BILIRUBIN,TOTAL 1.4 mg/dL (0.2-1); BLOOD UREA NITROGEN 10.8 mg/dL (7-18); CALCIUM 8.6 mg/dL (8.5-10.1); CREATININE 0.9 mg/dL (0.55-1.3); POTASSIUM 3.7 mmol/L (3.5-5.1); TOT PROT 7.4 g/dl (6.4-8.2)
[2020-04-12] MEDS: MELATONIN 5 MG TABLETS PO SCH (22:52)
[2020-04-12] MEDS: THIAMINE HCL 100 MG TABLET (FP) PO SCH (22:52)
[2020-04-13] MEDS: chlordiazePOXIDE HCL 25 MG CAPSULE PO SCH ×4 (07:15→22:11)
[2020-04-13] MEDS: hydrOXYzine PAMOATE 25 MG CAPSULE (FP) PO SCH ×5 (07:15→22:11)
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
[2020-04-13] MEDS: PRENATAL VITAMINS W/ FOLIC ACID TABLET (FP) PO SCH (10:07)
[2020-04-13] MEDS: NICOTINE 7 MG/24 HOURS TOPICAL PATCH TD SCH (10:09)
[2020-04-13] MEDS: OLANZapine 10 MG TABLET PO SCH ×2 (10:10→22:12)
--- NOTE | 2020-04-13 10:35 | PN ---
S CIWA - CIWA Score Nausea/Vomitin-No Nausea/No Vomiting Muscle Tremors: 3 Anxiety: 3 Agitation: 3 Paroxysmal Sweats: 3 Orientation: 0-Oriented Tacttile Disturbances: 0-None Auditory Disturbances: 0-None Visual Disturbances: 0-None Headache: 0-None Present CIWA-Ar Total Score: 12 BHS Progress Note (SOAP) Subjective: sweats tired Objective: 04/13/20 10:33 Vital Signs Temperature 97.5 04/13/20 06:11 Pulse Rate 104 04/13/20 06:11 Respiratory Rate 20 04/13/20 06:11 Blood Pressure 111/75 04/13/20 06:11 O2 Sat by Pulse Oximetry (%) 99 04/13/20 06:11 Laboratory Tests 04/12/20 04/12/20 04/12/20 10:05 10:05 10:05 WBC 3.0 L RBC 4.33 Hgb 11.3 Hct 35.5 D MCV 81.9 MCH 26.1 MCHC 31.9 L RDW 16.9 H Plt Count 287 MPV 7.4 L Sodium 138 Potassium 3.7 Chloride 105 Carbon Dioxide 23 Anion Gap 10 BUN 10.8 Creatinine 0.9 Est GFR (CKD-EPI)AfAm 94.01 Est GFR (CKD-EPI)NonAf 81.11 Random Glucose 81 Calcium 8.6 Total Bilirubin 1.4 H AST 28 ALT 27 Alkaline Phosphatase 88 Total Protein 7.4 Albumin 3.5 Syphilis Serology Non-reactive COVID-19 (MATTHEW) 04/12/20 10:05 WBC RBC Hgb Hct MCV MCH MCHC RDW Plt Count MPV Sodium Potassium Chloride Carbon Dioxide Anion Gap BUN Creatinine Est GFR (CKD-EPI)AfAm Est GFR (CKD-EPI)NonAf Random Glucose Calcium Total Bilirubin AST ALT Alkaline Phosphatase Total Protein Albumin Syphilis Serology COVID-19 (MATTHEW) Not detected labs noted aaox3 ambulating eating comfortable her breakfast. pt denies any suicidal/homicidal ideation when asked. Assessment: 04/13/20 10:35 withdrawals Plan: continue detox increase fluids
[2020-04-13] MEDS: MAG HYDROX/AL HYDROX/SIMETH 30 ML UNIT-DOSE CUP PO PRN (17:42)
[2020-04-13] MEDS: THIAMINE HCL 100 MG TABLET (FP) PO SCH (22:11)
[2020-04-13] MEDS: MELATONIN 5 MG TABLETS PO SCH (22:14)
[2020-04-14] MEDS: hydrOXYzine PAMOATE 25 MG CAPSULE (FP) PO SCH (07:22)
[2020-04-14] MEDS: chlordiazePOXIDE HCL 25 MG CAPSULE PO SCH ×4 (07:22→23:50)
[2020-04-14] MEDS ORDERED: hydrOXYzine PAMOATE 25 MG CAPSULE (FP) PO PRN (09:06)
[2020-04-14] MEDS: PRENATAL VITAMINS W/ FOLIC ACID TABLET (FP) PO SCH (10:30)
[2020-04-14] MEDS: OLANZapine 10 MG TABLET PO SCH ×2 (10:31→23:49)
[2020-04-14] MEDS: NICOTINE 7 MG/24 HOURS TOPICAL PATCH TD SCH (10:32)
--- NOTE | 2020-04-14 10:35 | PN ---
[facility] CIWA - CIWA Score Nausea/Vomitin-No Nausea/No Vomiting Muscle Tremors: 3 Anxiety: 2 Agitation: 2 Paroxysmal Sweats: 2 Orientation: 0-Oriented Tacttile Disturbances: 0-None Auditory Disturbances: 0-None Visual Disturbances: 0-None Headache: 0-None Present CIWA-Ar Total Score: 9 BHS Progress Note (SOAP) Subjective: tired sleepy groggy interrupted sleep Objective: 04/14/20 10:34 Vital Signs Temperature 97.6 F 04/14/20 05:57 Pulse Rate 90 04/14/20 05:57 Respiratory Rate 04/14/20 05:57 Blood Pressure 121/74 04/14/20 05:57 O2 Sat by Pulse Oximetry (%) 96 04/14/20 05:57 Laboratory Tests 04/12/20 04/12/20 04/12/20 10:05 10:05 10:05 WBC 3.0 L RBC 4.33 Hgb 11.3 Hct 35.5 D MCV 81.9 MCH 26.1 MCHC 31.9 L RDW 16.9 H Plt Count 287 MPV 7.4 L Sodium 138 Potassium 3.7 Chloride 105 Carbon Dioxide 23 Anion Gap 10 BUN 10.8 Creatinine 0.9 Est GFR (CKD-EPI)AfAm 94.01 Est GFR (CKD-EPI)NonAf 81.11 Random Glucose 81 Calcium 8.6 Total Bilirubin 1.4 H AST 28 ALT 27 Alkaline Phosphatase 88 Total Protein 7.4 Albumin 3.5 Syphilis Serology Non-reactive COVID-19 (MATTHEW) 04/12/20 10:05 WBC RBC Hgb Hct MCV MCH MCHC RDW Plt Count MPV Sodium Potassium Chloride Carbon Dioxide Anion Gap BUN Creatinine Est GFR (CKD-EPI)AfAm Est GFR (CKD-EPI)NonAf Random Glucose Calcium Total Bilirubin AST ALT Alkaline Phosphatase Total Protein Albumin Syphilis Serology COVID-19 (MATTHEW) Not detected aaox3 ambulating no acute distress Assessment: 04/14/20 10:35 withdrawals Plan: continue detox increase fluids pt may hold 10am librium;pt is made aware
[2020-04-14] MEDS: MELATONIN 5 MG TABLETS PO SCH (23:49)
[2020-04-14] MEDS: THIAMINE HCL 100 MG TABLET (FP) PO SCH (23:49)
[2020-04-15] MEDS ORDERED: chlordiazePOXIDE HCL 10 MG CAPSULE PO PRN
[2020-04-15] MEDS: chlordiazePOXIDE HCL 10 MG CAPSULE PO SCH ×4 (07:29→23:20)
[2020-04-15] MEDS: NICOTINE 7 MG/24 HOURS TOPICAL PATCH TD SCH (10:13)
[2020-04-15] MEDS: PRENATAL VITAMINS W/ FOLIC ACID TABLET (FP) PO SCH (10:13)
[2020-04-15] MEDS: OLANZapine 10 MG TABLET PO SCH ×2 (10:13→23:21)
--- NOTE | 2020-04-15 12:44 | PN ---
S CIWA - CIWA Score Nausea/Vomitin-No Nausea/No Vomiting Muscle Tremors: 2 Anxiety: 1-Mildly Anxious Agitation: 1-Slight > Activity Paroxysmal Sweats: 1-Minimal Palms Moist Orientation: 0-Oriented Tacttile Disturbances: 0-None Auditory Disturbances: 0-None Visual Disturbances: 0-None Headache: 0-None Present CIWA-Ar Total Score: 5 BHS Progress Note (SOAP) Subjective: feeling better sweats Objective: 04/15/20 12:37 Vital Signs Temperature 98.3 F 04/15/20 08:49 Pulse Rate 95 H 04/15/20 08:49 Respiratory Rate 16 04/15/20 08:49 Blood Pressure 106/69 04/15/20 08:49 O2 Sat by Pulse Oximetry (%) 97 04/15/20 05:46 Laboratory Tests 04/12/20 04/12/20 04/12/20 10:05 10:05 10:05 WBC 3.0 L RBC 4.33 Hgb 11.3 Hct 35.5 D MCV 81.9 MCH 26.1 MCHC 31.9 L RDW 16.9 H Plt Count 287 MPV 7.4 L Sodium 138 Potassium 3.7 Chloride 105 Carbon Dioxide 23 Anion Gap 10 BUN 10.8 Creatinine 0.9 Est GFR (CKD-EPI)AfAm 94.01 Est GFR (CKD-EPI)NonAf 81.11 Random Glucose 81 Calcium 8.6 Total Bilirubin 1.4 H AST 28 ALT 27 Alkaline Phosphatase 88 Total Protein 7.4 Albumin 3.5 Syphilis Serology Non-reactive COVID-19 (MATTHEW) 04/12/20 10:05 WBC RBC Hgb Hct MCV MCH MCHC RDW Plt Count MPV Sodium Potassium Chloride Carbon Dioxide Anion Gap BUN Creatinine Est GFR (CKD-EPI)AfAm Est GFR (CKD-EPI)NonAf Random Glucose Calcium Total Bilirubin AST ALT Alkaline Phosphatase Total Protein Albumin Syphilis Serology COVID-19 (MATTHEW) Not detected aaox3 ambulating no acute distress Assessment: 04/15/20 12:41 mild withdrawals Plan: continue detox increase fluids
[2020-04-15] MEDS: THIAMINE HCL 100 MG TABLET (FP) PO SCH (23:20)
[2020-04-16] MEDS: chlordiazePOXIDE HCL 10 MG CAPSULE PO SCH ×2 (07:04→17:50)
--- NOTE | 2020-04-16 10:33 | PN ---
S CIWA - CIWA Score Nausea/Vomitin-Mild Nausea/No Vomiting Muscle Tremors: 2 Anxiety: 2 Agitation: 1-Slight > Activity Paroxysmal Sweats: 1-Minimal Palms Moist Orientation: 0-Oriented Tacttile Disturbances: 0-None Auditory Disturbances: 0-None Visual Disturbances: 0-None BHS Progress Note (SOAP) Subjective: admitted for alcohol detox, pt anticipated discharge tomorrow to rehab here. O: Vital Signs - 24 hr 04/15/20 04/15/20 04/15/20 13:01 17:22 21:19 Temperature 98.1 F 97.9 F 97.1 F L Pulse Rate 107 H 108 H 102 H Respiratory 20 19 18 Rate Blood Pressure 132/69 125/73 132/77 O2 Sat by Pulse 95 95 Oximetry (%) 04/16/20 04/16/20 05:07 08:48 Temperature 97.5 F L 98.4 F Pulse Rate 104 H 94 H Respiratory 18 20 Rate Blood Pressure 129/77 119/62 O2 Sat by Pulse 96 Oximetry (%) Laboratory Tests 04/12/20 04/12/20 04/12/20 10:05 10:05 10:05 WBC 3.0 L RBC 4.33 Hgb 11.3 Hct 35.5 D MCV 81.9 MCH 26.1 MCHC 31.9 L RDW 16.9 H Plt Count 287 MPV 7.4 L Sodium 138 Potassium 3.7 Chloride 105 Carbon Dioxide 23 Anion Gap 10 BUN 10.8 Creatinine 0.9 Est GFR (CKD-EPI)AfAm 94.01 Est GFR (CKD-EPI)NonAf 81.11 Random Glucose 81 Calcium 8.6 Total Bilirubin a/p: 1.4 H AST 28 ALT 27 Alkaline Phosphatase 88 Total Protein 7.4 Albumin 3.5 Syphilis Serology Non-reactive COVID-19 (MATTHEW) 04/12/20 10:05 WBC RBC Hgb Hct MCV MCH MCHC RDW Plt Count MPV Sodium Potassium Chloride Carbon Dioxide Anion Gap BUN Creatinine Est GFR (CKD-EPI)AfAm Est GFR (CKD-EPI)NonAf Random Glucose Calcium Total Bilirubin AST ALT Alkaline Phosphatase Total Protein Albumin Syphilis Serology COVID-19 (MATTHEW) Not detected a/p AUD- continue alcohol detox protocol, discharge tomorrow to rehab here. Confirmed with counselor.
[2020-04-16] MEDS: PRENATAL VITAMINS W/ FOLIC ACID TABLET (FP) PO SCH (11:17)
[2020-04-16] MEDS: OLANZapine 10 MG TABLET PO SCH ×2 (11:17→22:46)
[2020-04-16] MEDS: NICOTINE 7 MG/24 HOURS TOPICAL PATCH TD SCH (11:17)
[2020-04-16] MEDS: THIAMINE HCL 100 MG TABLET (FP) PO SCH (22:46)
[2020-04-17] MEDS ORDERED: chlordiazePOXIDE HCL 10 MG CAPSULE PO ONE (05:00)
[2020-04-17] MEDS: OLANZapine 10 MG TABLET PO SCH ×2 (10:31→21:11)
[2020-04-17] MEDS: PRENATAL VITAMINS W/ FOLIC ACID TABLET (FP) PO SCH (10:32)
[2020-04-17] MEDS: NICOTINE 7 MG/24 HOURS TOPICAL PATCH TD SCH (10:32)
--- NOTE | 2020-04-17 13:16 | PN ---
S CIWA - CIWA Score Nausea/Vomitin-No Nausea/No Vomiting Muscle Tremors: None Anxiety: 2 Agitation: 2 Paroxysmal Sweats: No Perspiration Orientation: 0-Oriented Tacttile Disturbances: 0-None Auditory Disturbances: 0-None Visual Disturbances: 0-None Headache: 0-None Present CIWA-Ar Total Score: 4 BHS Progress Note (SOAP) Subjective: Complaints of mild anxiety and agitation. Objective: Vital Signs 04/17/20 04/17/20 06:49 09:10 Temperature 98.4 F 97.5 F L Pulse Rate 95 H 101 H Respiratory 22 H 19 Rate Blood Pressure 123/76 118/68 O2 Sat by Pulse 96 96 Oximetry (%) Laboratory Last Values WBC 3.0 K/mm3 (4.0-10.0) L 04/12/20 10:05 RBC 4.33 M/mm3 (3.60-5.2) 04/12/20 10:05 Hgb 11.3 GM/dL (10.7-15.3) 04/12/20 10:05 Hct 35.5 % (32.4-45.2) D 04/12/20 10:05 MCV 81.9 fl (80-96) 04/12/20 10:05 MCH 26.1 pg (25.7-33.7) 04/12/20 10:05 MCHC 31.9 g/dl (32.0-36.0) L 04/12/20 10:05 RDW 16.9 % (11.6-15.6) H 04/12/20 10:05 Plt Count 287 K/MM3 (134-434) 04/12/20 10:05 MPV 7.4 fl (7.5-11.1) L 04/12/20 10:05 Sodium 138 mmol/L (136-145) 04/12/20 10:05 Potassium 3.7 mmol/L (3.5-5.1) 04/12/20 10:05 Chloride 105 mmol/L (98-107) 04/12/20 10:05 Carbon Dioxide 23 mmol/L (21-32) 04/12/20 10:05 Anion Gap 10 MMOL/L (8-16) 04/12/20 10:05 BUN 10.8 mg/dL (7-18) 04/12/20 10:05 Creatinine 0.9 mg/dL (0.55-1.3) 04/12/20 10:05 Est GFR (CKD-EPI)AfAm 94.01 04/12/20 10:05 Est GFR (CKD-EPI)NonAf 81.11 04/12/20 10:05 Random Glucose 81 mg/dL (74-106) 04/12/20 10:05 Calcium 8.6 mg/dL (8.5-10.1) 04/12/20 10:05 Total Bilirubin 1.4 mg/dL (0.2-1) H 04/12/20 10:05 AST 28 U/L (15-37) 04/12/20 10:05 ALT 27 U/L (13-61) 04/12/20 10:05 Alkaline Phosphatase 88 U/L (45-117) 04/12/20 10:05 Total Protein 7.4 g/dl (6.4-8.2) 04/12/20 10:05 Albumin 3.5 g/dl (3.4-5.0) 04/12/20 10:05 Syphilis Serology Non-reactive (NONREACTIVE) 04/12/20 10:05 COVID-19 (MATTHEW) Not detected (Not Detected) 04/12/20 10:05 Labs noted. Assessment: 04/17/20 13:14 Alert and oriented x 3, in no acute respiratory distress. Full ROM, ambulating in the unit without assistance. Very mild withdrawal symptoms. Detox protocol completed, stable to be transferred to [facility] for Rehab. Plan: Transfer to [facility] for Rehab.
[2020-04-17] MEDS: THIAMINE HCL 100 MG TABLET (FP) PO SCH (21:10)
[2020-04-17] MEDS: MAG HYDROX/AL HYDROX/SIMETH 30 ML UNIT-DOSE CUP PO PRN (21:12)
[2020-04-18] MEDS: OLANZapine 10 MG TABLET PO SCH ×2 (10:55→21:26)
[2020-04-18] MEDS: NICOTINE 7 MG/24 HOURS TOPICAL PATCH TD SCH (10:55)
[2020-04-18] MEDS: PRENATAL VITAMINS W/ FOLIC ACID TABLET (FP) PO SCH (10:55)
[2020-04-18] MEDS: THIAMINE HCL 100 MG TABLET (FP) PO SCH (21:27)
[2020-04-18] MEDS: MAG HYDROX/AL HYDROX/SIMETH 30 ML UNIT-DOSE CUP PO PRN (23:56)
[2020-04-19] MEDS: PANTOPRAZOLE 40 MG TABLET PO SCH (09:38)
[2020-04-19] MEDS: NICOTINE 7 MG/24 HOURS TOPICAL PATCH TD SCH (09:39)
[2020-04-19] MEDS: PRENATAL VITAMINS W/ FOLIC ACID TABLET (FP) PO SCH (09:39)
[2020-04-19] MEDS: OLANZapine 10 MG TABLET PO SCH ×2 (09:39→21:30)
--- NOTE | 2020-04-19 11:42 | PN ---
BHS Progress Note Note: Pt reports hx GERD and requests medication. Vital Signs (72 hours) 04/16/20 04/16/20 04/16/20 13:06 17:28 21:10 Temperature 98.2 F 98.7 F 97.9 F Pulse Rate 99 H 104 H 118 H Respiratory 16 20 20 Rate Blood Pressure 102/65 113/69 106/53 L O2 Sat by Pulse 99 Oximetry (%) 04/17/20 04/17/20 04/17/20 06:49 09:10 14:00 Temperature 98.4 F 97.5 F L 98 F Pulse Rate 95 H 101 H 115 H Respiratory 22 H 19 18 Rate Blood Pressure 123/76 118/68 110/83 O2 Sat by Pulse 96 96 97 Oximetry (%) 04/17/20 04/17/20 04/18/20 18:22 20:42 07:14 Temperature 97.7 F Pulse Rate 107 H Respiratory 18 Rate Blood Pressure 120/86 O2 Sat by Pulse 98 96 100 Oximetry (%) 04/18/20 04/18/20 14:30 20:33 Temperature Pulse Rate Respiratory Rate Blood Pressure O2 Sat by Pulse 98 96 Oximetry (%) Start protonix 40 mg po daily
[2020-04-19] MEDS: THIAMINE HCL 100 MG TABLET (FP) PO SCH (21:30)
[2020-04-19] MEDS: MAG HYDROX/AL HYDROX/SIMETH 30 ML UNIT-DOSE CUP PO PRN (21:30)
[2020-04-20] MEDS ORDERED: MASKS NR ONE (07:36)
[2020-04-20] MEDS: PRENATAL VITAMINS W/ FOLIC ACID TABLET (FP) PO SCH (09:43)
[2020-04-20] MEDS: PANTOPRAZOLE 40 MG TABLET PO SCH (09:43)
[2020-04-20] MEDS: OLANZapine 10 MG TABLET PO SCH ×2 (09:43→21:18)
[2020-04-20] MEDS: NICOTINE 7 MG/24 HOURS TOPICAL PATCH TD SCH (09:44)
[2020-04-20] MEDS: MELATONIN 5 MG TABLETS PO PRN (21:17)
[2020-04-20] MEDS: THIAMINE HCL 100 MG TABLET (FP) PO SCH (21:18)
[2020-04-21] MEDS: NICOTINE 7 MG/24 HOURS TOPICAL PATCH TD SCH (09:14)
[2020-04-21] MEDS: PANTOPRAZOLE 40 MG TABLET PO SCH (09:14)
[2020-04-21] MEDS: OLANZapine 10 MG TABLET PO SCH ×2 (09:14→21:31)
[2020-04-21] MEDS: PRENATAL VITAMINS W/ FOLIC ACID TABLET (FP) PO SCH (09:14)
[2020-04-21] MEDS: THIAMINE HCL 100 MG TABLET (FP) PO SCH (21:31)
[2020-04-21] MEDS: MELATONIN 5 MG TABLETS PO PRN (21:32)
[2020-04-22] MEDS: PRENATAL VITAMINS W/ FOLIC ACID TABLET (FP) PO SCH (09:52)
[2020-04-22] MEDS: PANTOPRAZOLE 40 MG TABLET PO SCH (09:52)
[2020-04-22] MEDS: NICOTINE 7 MG/24 HOURS TOPICAL PATCH TD SCH (09:53)
[2020-04-22] MEDS: OLANZapine 10 MG TABLET PO SCH ×2 (09:53→22:05)
[2020-04-22] MEDS: THIAMINE HCL 100 MG TABLET (FP) PO SCH (22:05)
[2020-04-23] MEDS ORDERED: PT OWN MED DRAWER 7, Y5N ONE ×2 (08:34→21:25)
[2020-04-23] MEDS: OLANZapine 10 MG TABLET PO SCH ×2 (09:19→21:22)
[2020-04-23] MEDS: PANTOPRAZOLE 40 MG TABLET PO SCH (09:19)
[2020-04-23] MEDS: NICOTINE 7 MG/24 HOURS TOPICAL PATCH TD SCH (09:19)
[2020-04-23] MEDS: PRENATAL VITAMINS W/ FOLIC ACID TABLET (FP) PO SCH (09:19)
[2020-04-23] MEDS: THIAMINE HCL 100 MG TABLET (FP) PO SCH (21:22)
[2020-04-24] MEDS: PANTOPRAZOLE 40 MG TABLET PO SCH (09:49)
[2020-04-24] MEDS: PRENATAL VITAMINS W/ FOLIC ACID TABLET (FP) PO SCH (09:49)
[2020-04-24] MEDS: NICOTINE 7 MG/24 HOURS TOPICAL PATCH TD SCH (09:49)
[2020-04-24] MEDS: OLANZapine 10 MG TABLET PO SCH ×2 (09:49→21:20)
[2020-04-24] MEDS: THIAMINE HCL 100 MG TABLET (FP) PO SCH (21:20)
[2020-04-24] MEDS: MELATONIN 5 MG TABLETS PO PRN (21:21)
[2020-04-25] MEDS: OLANZapine 10 MG TABLET PO SCH ×2 (09:57→21:33)
[2020-04-25] MEDS: PRENATAL VITAMINS W/ FOLIC ACID TABLET (FP) PO SCH (09:57)
[2020-04-25] MEDS: NICOTINE 7 MG/24 HOURS TOPICAL PATCH TD SCH (09:57)
[2020-04-25] MEDS: PANTOPRAZOLE 40 MG TABLET PO SCH (09:57)
[2020-04-25] MEDS ORDERED: PT OWN MED DRAWER 7, Y5N ONE (10:02)
[2020-04-25] MEDS: THIAMINE HCL 100 MG TABLET (FP) PO SCH (21:33)
[2020-04-26] MEDS ORDERED: PT OWN MED DRAWER 7, Y5N ONE (08:35)
[2020-04-26] MEDS: PRENATAL VITAMINS W/ FOLIC ACID TABLET (FP) PO SCH (09:07)
[2020-04-26] MEDS: OLANZapine 10 MG TABLET PO SCH ×2 (09:07→21:50)
[2020-04-26] MEDS: NICOTINE 7 MG/24 HOURS TOPICAL PATCH TD SCH (09:08)
[2020-04-26] MEDS: PANTOPRAZOLE 40 MG TABLET PO SCH (09:08)
[2020-04-26] MEDS: THIAMINE HCL 100 MG TABLET (FP) PO SCH (21:50)
[2020-04-27] MEDS: PRENATAL VITAMINS W/ FOLIC ACID TABLET (FP) PO SCH (09:56)
[2020-04-27] MEDS: PANTOPRAZOLE 40 MG TABLET PO SCH (09:56)
[2020-04-27] MEDS: OLANZapine 10 MG TABLET PO SCH ×2 (09:56→22:02)
[2020-04-27] MEDS: NICOTINE 7 MG/24 HOURS TOPICAL PATCH TD SCH (09:57)
[2020-04-27] MEDS: THIAMINE HCL 100 MG TABLET (FP) PO SCH (22:03)
[2020-04-28] MEDS: OLANZapine 10 MG TABLET PO SCH ×2 (09:27→21:33)
[2020-04-28] MEDS: PRENATAL VITAMINS W/ FOLIC ACID TABLET (FP) PO SCH (09:27)
[2020-04-28] MEDS: PANTOPRAZOLE 40 MG TABLET PO SCH (09:27)
[2020-04-28] MEDS: NICOTINE 7 MG/24 HOURS TOPICAL PATCH TD SCH (09:27)
[2020-04-28] MEDS: THIAMINE HCL 100 MG TABLET (FP) PO SCH (21:33)
[2020-04-29 07:13] VITALS: BP 116/82; PULSE 106; TEMP 98.2
--- NOTE | 2020-04-29 08:48 | DS ---
[facility] Rehab Discharge Summary - [facility] Rehab Discharge Summary Admission Date: 04/12/20 Discharge Date: 04/29/20 - History Present History: Alcohol dependence, Cannabis dependence, Cocaine dependence Pertinent Past History: Asthma hx Intussusception of small bowel - Discharge Physical Exam Vital Signs: Vital Signs Temperature 98.2 F 04/29/20 06:30 Pulse Rate 106 H 04/29/20 06:30 Respiratory Rate 20 04/29/20 06:30 Blood Pressure 116/82 04/29/20 06:30 O2 Sat by Pulse Oximetry (%) 98 04/29/20 06:30 General;WDWN female. Alert o x 3, coherent Resp:no difficulty, pulse ox-98% MSK/Skin:oob ambulating with steady gait, active FROM, all limbs.No pedal edema, skin intact. Pertinent Admission Physical Exam Findings: Laboratory Tests 04/12/20 04/12/20 04/12/20 10:05 10:05 10:05 WBC 3.0 L RBC 4.33 Hgb 11.3 Hct 35.5 D MCV 81.9 MCH 26.1 MCHC 31.9 L RDW 16.9 H Plt Count 287 MPV 7.4 L Sodium 138 Potassium 3.7 Chloride 105 Carbon Dioxide 23 Anion Gap 10 BUN 10.8 Creatinine 0.9 Est GFR (CKD-EPI)AfAm 94.01 Est GFR (CKD-EPI)NonAf 81.11 Random Glucose 81 Calcium 8.6 Total Bilirubin 1.4 H AST 28 ALT 27 Alkaline Phosphatase 88 Total Protein 7.4 Albumin 3.5 Syphilis Serology Non-reactive COVID-19 (MATTHEW) 04/12/20 10:05 WBC RBC Hgb Hct MCV MCH MCHC RDW Plt Count MPV Sodium Potassium Chloride Carbon Dioxide Anion Gap BUN Creatinine Est GFR (CKD-EPI)AfAm Est GFR (CKD-EPI)NonAf Random Glucose Calcium Total Bilirubin AST ALT Alkaline Phosphatase Total Protein Albumin Syphilis Serology COVID-19 (MATTHEW) Not detected - Treatment Discharge Condition: Discharge condition good, Rehabilitated safely, Responded well, Outpatient referral accepted Hospital Course: pt is a 39 y/i female admitted to rehab and requests discharged today. pt met with her counselor, Ms Raj Mays and has been referred to aftercare. Pt is connected to [facility] for her psych and Medical management/coordination of care. Pt spoke with her ACT team before discharge who is aware of her discharge and informed per Ms Rodrigueznde that patient returns to them right away via transportation arranged by counselor, Ms Anthony. Pt accepted CD aftercare referral to [facility] - Medication Discharge Medications: Ambulatory Orders Olanzapine [ZyPREXA -] 10 mg PO DAILY #30 tablet 01/29/20 Olanzapine [Zyprexa -] 20 mg PO HS 04/12/20 Olanzapine [ZyPREXA -] 10 mg PO DAILY #30 tablet 04/29/20 Olanzapine [ZyPREXA -] 20 mg PO HS #60 tablet 04/29/20 - Medication-Assisted Treatment (MAT) Medication-Assisted Treatment (MAT): No - Discharge Instructions Diet, activity, other medical instructions: Diet:Regular Activity: oob ad stacia Other medical instructions:Follow up with CD aftercare as scheduled follw up with medical/psych management with your [facility]. - Diagnosis (1) Cannabis dependence Current Visit: Yes Status: Chronic (2) Cocaine dependence, uncomplicated Current Visit: Yes Status: Chronic (3) Nicotine dependence Current Visit: Yes Status: Chronic Qualifiers: Nicotine product type: cigarettes Substance use status: uncomplicated Qualified Code(s): F17.210 - Nicotine dependence, cigarettes, uncomplicated (4) Alcohol dependence Current Visit: Yes Status: Chronic Qualifiers: Substance use status: uncomplicated Qualified Code(s): F10.20 - Alcohol dependence, uncomplicated (5) Asthma Current Visit: Yes Status: Chronic (6) Psychiatric disorder Current Visit: Yes Status: Chronic - Follow-up Referral Minutes to complete discharge: 25 - AMA Did Patient Leave Against Medical Advice: No
--- NOTE | 2020-04-29 08:59 | PN ---
S Progress Note Note: Psychiatric nurse practitioner note: Patient scheduled for discharge today. A 30 day prescription of Zyprexa 10mg daily + Zyprexa 20mg HS was electronically sent to [facility] pharmacy @ [address] [place] [id number].
[2020-04-29] MEDS: PRENATAL VITAMINS W/ FOLIC ACID TABLET (FP) PO SCH (09:02)
[2020-04-29] MEDS: PANTOPRAZOLE 40 MG TABLET PO SCH (09:03)
[2020-04-29] MEDS: NICOTINE 7 MG/24 HOURS TOPICAL PATCH TD SCH (09:03)
[2020-04-29] MEDS: OLANZapine 10 MG TABLET PO SCH (09:03)
== END 2020-04-29 11:40 | disposition home or self-care (01) | DRG 895 ==
LOC: YASAS 08:16 → Y6N 09:18 → Y3E 04-17 15:19
PROVIDERS: ADMIT Allergy & Immunology; ATTEND Allergy & Immunology
PROC: HZ2ZZZZ Detoxification Services for Substance Abuse Treatment (ICD-10-PCS; 2020-04-12)
PROC: HZ42ZZZ Group Counseling for Substance Abuse Treatment, Cognitive-Behavioral (ICD-10-PCS; principal; 2020-04-17)
DX: F10.20 Alcohol dependence, uncomplicated (principal); F14.20 Cocaine dependence, uncomplicated; F16.20 Hallucinogen dependence, uncomplicated; F19.282 Other psychoactive substance dependence with psychoactive substance-induced sleep disorder; F12.20 Cannabis dependence, uncomplicated; F17.210 Nicotine dependence, cigarettes, uncomplicated; F25.9 Schizoaffective disorder, unspecified; J45.909 Unspecified asthma, uncomplicated; K21.9 Gastro-esophageal reflux disease without esophagitis; Z62.810 Personal history of physical and sexual abuse in childhood; Z91.410 Personal history of adult physical and sexual abuse; Z88.0 Allergy status to penicillin; Z88.8 Allergy status to other drugs, medicaments and biological substances; Z86.2 Personal history of diseases of the blood and blood-forming organs and certain disorders involving the immune mechanism; Z87.19 Personal history of other diseases of the digestive system
CPT/HCPCS: 36415; 80053; 85027; 86780; U0003

== ENCOUNTER 2021-02-06 14:34 | Inpatient (IN) | payer OTHER ==
[2021-02-06 16:26] VITALS: BMI 36.6
[2021-02-06] MEDS ORDERED: MENTHOL/PHENOL 1 EACH UD MM PRN (17:13)
[2021-02-06] MEDS ORDERED: NICOTINE POLACRILEX 2 MG GUM BUC PRN (17:13)
[2021-02-06] MEDS ORDERED: IBUPROFEN 400 MG TABLET (FP) PO PRN (17:13)
[2021-02-06] MEDS ORDERED: hydrOXYzine PAMOATE 25 MG CAPSULE (FP) PO PRN (17:13)
[2021-02-06] MEDS ORDERED: ACETAMINOPHEN 325 MG TABLET (FP) PO PRN (17:13)
[2021-02-06] MEDS ORDERED: MAGNESIUM HYDROX 2400MG/30ML ORAL SUSPENSION 30 ML CUP PO PRN (17:13)
[2021-02-06] MEDS ORDERED: METHOCARBAMOL 500 MG TABLET PO PRN (17:13)
[2021-02-06] MEDS ORDERED: MAGNESIUM CITRATE 300 ML BOTTLE PO PRN (17:13)
[2021-02-06] MEDS ORDERED: diazePAM 5 MG TABLET PO PRN (17:23)
[2021-02-06] MEDS: ONDANSETRON *ODT* 4 MG TABLET SL PRN (18:18)
[2021-02-06] MEDS: diazePAM 5 MG TABLET PO SCH ×2 (18:22→22:35)
[2021-02-06] MEDS: THIAMINE HCL 100 MG TABLET (FP) PO SCH (22:35)
[2021-02-06] MEDS: MELATONIN 5 MG TABLETS PO SCH (22:35)
[2021-02-07] MEDS: diazePAM 5 MG TABLET PO SCH ×4 (06:54→22:38)
[2021-02-07] MEDS ORDERED: ACETAMINOPHEN 325 MG TABLET (FP) PO ONE (10:00)
[2021-02-07] MEDS ORDERED: ONDANSETRON *ODT* 4 MG TABLET SL ONE (10:00)
[2021-02-07] MEDS: ACETAMINOPHEN 325 MG TABLET (FP) PO PRN (10:46)
[2021-02-07] MEDS: ONDANSETRON *ODT* 4 MG TABLET SL PRN (10:47)
[2021-02-07] MEDS: PRENATAL VITAMINS W/ FOLIC ACID TABLET (FP) PO SCH (10:47)
[2021-02-07] MEDS: OLANZapine 10 MG TABLET PO SCH ×2 (10:47→22:38)
[2021-02-07] MEDS: MAG HYDROX/AL HYDROX/SIMETH 30 ML UNIT-DOSE CUP PO PRN (17:45)
[2021-02-07] MEDS: THIAMINE HCL 100 MG TABLET (FP) PO SCH (22:38)
[2021-02-07] MEDS: MELATONIN 5 MG TABLETS PO SCH (22:39)
[2021-02-08] MEDS: diazePAM 5 MG TABLET PO SCH ×2 (07:01→17:42)
[2021-02-08] MEDS: PRENATAL VITAMINS W/ FOLIC ACID TABLET (FP) PO SCH (10:10)
[2021-02-08] MEDS: OLANZapine 10 MG TABLET PO SCH ×2 (10:10→23:00)
[2021-02-08 10:13] LABS: HEMATOCRIT 25.4 % (32.4-45.2); HEMOGLOBIN 7.4 GM/dL (10.7-15.3); MCHC 29.2 g/dl (32.0-36.0); MEAN CELL VOLUME 66.6 fl (80-96); MEAN PLT VOLUME 6.9 fl (7.5-11.1); PLATELET COUNT 336 10^3/uL (134-434); RBC 3.81 M/mm3 (3.60-5.2); WHITE BLOOD COUNT 3.9 K/mm3 (4.0-10.0)
[2021-02-08 10:14] LABS: CALCIUM 8.9 mg/dL (8.5-10.1)
[2021-02-08 10:15] LABS: ALBUMIN 2.8 g/dl (3.4-5.0); BLOOD UREA NITROGEN 6.6 mg/dL (7-18); MCH 19.4 pg (25.7-33.7)
[2021-02-08 10:18] LABS: CREATININE 0.9 mg/dL (0.55-1.3)
[2021-02-08 10:20] LABS: BILIRUBIN,TOTAL 0.6 mg/dL (0.2-1); TOT PROT 6.2 g/dl (6.4-8.2)
[2021-02-08] MEDS: MAG HYDROX/AL HYDROX/SIMETH 30 ML UNIT-DOSE CUP PO PRN (17:16)
[2021-02-08] MEDS: ACETAMINOPHEN 325 MG TABLET (FP) PO PRN (19:13)
[2021-02-08] MEDS: THIAMINE HCL 100 MG TABLET (FP) PO SCH (23:00)
[2021-02-08] MEDS: MELATONIN 5 MG TABLETS PO SCH (23:00)
[2021-02-09] MEDS ORDERED: diazePAM 5 MG TABLET PO ONE (06:00)
[2021-02-09 10:10] LABS: SARS-CoV-2 NAA Not Detected (Not Detected)
[2021-02-09] MEDS: PRENATAL VITAMINS W/ FOLIC ACID TABLET (FP) PO SCH (10:12)
[2021-02-09] MEDS: OLANZapine 10 MG TABLET PO SCH ×2 (10:12→21:32)
[2021-02-09] MEDS ORDERED: TUBERCULIN PPD 5 TU/0.1ML VIAL ID ONE (16:30)
[2021-02-09] MEDS: MAG HYDROX/AL HYDROX/SIMETH 30 ML UNIT-DOSE CUP PO PRN (17:29)
[2021-02-09] MEDS: MELATONIN 5 MG TABLETS PO SCH (21:31)
[2021-02-09] MEDS: THIAMINE HCL 100 MG TABLET (FP) PO SCH (21:31)
[2021-02-10] MEDS: PRENATAL VITAMINS W/ FOLIC ACID TABLET (FP) PO SCH (10:41)
[2021-02-10] MEDS: OLANZapine 10 MG TABLET PO SCH ×2 (10:42→21:44)
[2021-02-10] MEDS: MAG HYDROX/AL HYDROX/SIMETH 30 ML UNIT-DOSE CUP PO PRN (10:42)
[2021-02-10] MEDS: THIAMINE HCL 100 MG TABLET (FP) PO SCH (21:44)
[2021-02-10] MEDS: MELATONIN 5 MG TABLETS PO SCH (21:44)
[2021-02-11] MEDS: OLANZapine 10 MG TABLET PO SCH ×2 (10:37→21:06)
[2021-02-11] MEDS: PRENATAL VITAMINS W/ FOLIC ACID TABLET (FP) PO SCH (10:37)
[2021-02-11] MEDS: MAG HYDROX/AL HYDROX/SIMETH 30 ML UNIT-DOSE CUP PO PRN (10:38)
[2021-02-11] MEDS: BISMUTH SUBSALICYLATE 524 MG/30 ML PO PRN ×2 (15:45→21:09)
[2021-02-11] MEDS: FERROUS SO4 325 MG TABLET (FP) PO SCH (16:31)
[2021-02-11] MEDS: MELATONIN 5 MG TABLETS PO SCH (21:06)
[2021-02-11] MEDS: THIAMINE HCL 100 MG TABLET (FP) PO SCH (21:06)
[2021-02-11] MEDS ORDERED: P-EPHED 60MG/TRIPROLIDI 2.5MG TABLET PO PRN (22:43)
[2021-02-12] MEDS: FERROUS SO4 325 MG TABLET (FP) PO SCH ×2 (08:36→17:39)
[2021-02-12] MEDS: PRENATAL VITAMINS W/ FOLIC ACID TABLET (FP) PO SCH (10:35)
[2021-02-12] MEDS: OLANZapine 10 MG TABLET PO SCH ×2 (10:35→21:43)
[2021-02-12] MEDS: BISMUTH SUBSALICYLATE 524 MG/30 ML PO PRN (10:37)
[2021-02-12] MEDS: THIAMINE HCL 100 MG TABLET (FP) PO SCH (21:44)
[2021-02-12] MEDS: MELATONIN 5 MG TABLETS PO SCH (21:44)
[2021-02-13] MEDS: FERROUS SO4 325 MG TABLET (FP) PO SCH ×2 (10:17→17:34)
[2021-02-13] MEDS: OLANZapine 10 MG TABLET PO SCH ×2 (10:17→21:06)
[2021-02-13] MEDS: PRENATAL VITAMINS W/ FOLIC ACID TABLET (FP) PO SCH (10:17)
[2021-02-13] MEDS: BISMUTH SUBSALICYLATE 524 MG/30 ML PO PRN ×2 (15:34→21:08)
[2021-02-13] MEDS: MELATONIN 5 MG TABLETS PO SCH (21:05)
[2021-02-13] MEDS: THIAMINE HCL 100 MG TABLET (FP) PO SCH (21:06)
[2021-02-14] MEDS: FERROUS SO4 325 MG TABLET (FP) PO SCH ×2 (10:25→18:30)
[2021-02-14] MEDS: BACITRACIN 0.9 GM PACKET TP SCH ×2 (10:26→21:42)
[2021-02-14] MEDS: PANTOPRAZOLE 20 MG TABLET PO SCH ×2 (10:26→21:42)
[2021-02-14] MEDS: PRENATAL VITAMINS W/ FOLIC ACID TABLET (FP) PO SCH (10:26)
[2021-02-14] MEDS: OLANZapine 10 MG TABLET PO SCH ×2 (11:03→21:43)
[2021-02-14] MEDS: MELATONIN 5 MG TABLETS PO SCH (21:42)
[2021-02-14] MEDS: THIAMINE HCL 100 MG TABLET (FP) PO SCH (21:42)
[2021-02-15] MEDS: FERROUS SO4 325 MG TABLET (FP) PO SCH ×2 (08:58→17:16)
[2021-02-15] MEDS: BACITRACIN 0.9 GM PACKET TP SCH ×2 (08:58→21:08)
[2021-02-15] MEDS: PRENATAL VITAMINS W/ FOLIC ACID TABLET (FP) PO SCH (10:59)
[2021-02-15] MEDS: OLANZapine 10 MG TABLET PO SCH ×2 (10:59→21:07)
[2021-02-15] MEDS: PANTOPRAZOLE 20 MG TABLET PO SCH ×2 (10:59→21:07)
[2021-02-15] MEDS: THIAMINE HCL 100 MG TABLET (FP) PO SCH (21:07)
[2021-02-15] MEDS: MELATONIN 5 MG TABLETS PO SCH (21:07)
[2021-02-16] MEDS: PRENATAL VITAMINS W/ FOLIC ACID TABLET (FP) PO SCH (10:26)
[2021-02-16] MEDS: PANTOPRAZOLE 20 MG TABLET PO SCH ×2 (10:26→21:36)
[2021-02-16] MEDS: FERROUS SO4 325 MG TABLET (FP) PO SCH ×2 (10:26→17:40)
[2021-02-16] MEDS: OLANZapine 10 MG TABLET PO SCH ×2 (10:26→21:36)
[2021-02-16] MEDS: BACITRACIN 0.9 GM PACKET TP SCH ×2 (10:27→21:36)
[2021-02-16] MEDS: MELATONIN 5 MG TABLETS PO SCH (21:36)
[2021-02-16] MEDS: THIAMINE HCL 100 MG TABLET (FP) PO SCH (21:36)
[2021-02-17] MEDS: FERROUS SO4 325 MG TABLET (FP) PO SCH ×2 (08:20→18:35)
[2021-02-17] MEDS: PANTOPRAZOLE 20 MG TABLET PO SCH ×2 (10:20→21:08)
[2021-02-17] MEDS: PRENATAL VITAMINS W/ FOLIC ACID TABLET (FP) PO SCH (10:20)
[2021-02-17] MEDS: OLANZapine 10 MG TABLET PO SCH ×2 (10:20→21:08)
[2021-02-17] MEDS: BACITRACIN 0.9 GM PACKET TP SCH ×2 (10:21→21:09)
[2021-02-17] MEDS: THIAMINE HCL 100 MG TABLET (FP) PO SCH (21:09)
[2021-02-17] MEDS: MELATONIN 5 MG TABLETS PO SCH (21:09)
[2021-02-18] MEDS: FERROUS SO4 325 MG TABLET (FP) PO SCH ×2 (08:51→17:46)
[2021-02-18] MEDS: PRENATAL VITAMINS W/ FOLIC ACID TABLET (FP) PO SCH (09:51)
[2021-02-18] MEDS: PANTOPRAZOLE 20 MG TABLET PO SCH ×2 (09:51→21:46)
[2021-02-18] MEDS: OLANZapine 10 MG TABLET PO SCH ×2 (09:51→21:46)
[2021-02-18] MEDS: BACITRACIN 0.9 GM PACKET TP SCH ×2 (09:51→21:47)
[2021-02-18] MEDS: MELATONIN 5 MG TABLETS PO SCH (21:46)
[2021-02-18] MEDS: THIAMINE HCL 100 MG TABLET (FP) PO SCH (21:46)
[2021-02-19] MEDS: FERROUS SO4 325 MG TABLET (FP) PO SCH ×2 (07:03→17:28)
[2021-02-19] MEDS: PRENATAL VITAMINS W/ FOLIC ACID TABLET (FP) PO SCH (10:12)
[2021-02-19] MEDS: OLANZapine 10 MG TABLET PO SCH ×2 (10:12→21:07)
[2021-02-19] MEDS: PANTOPRAZOLE 20 MG TABLET PO SCH ×2 (10:12→21:08)
[2021-02-19] MEDS: BACITRACIN 0.9 GM PACKET TP SCH ×2 (10:12→21:07)
[2021-02-19] MEDS: THIAMINE HCL 100 MG TABLET (FP) PO SCH (21:07)
[2021-02-19] MEDS: MELATONIN 5 MG TABLETS PO SCH (21:08)
[2021-02-20] MEDS: PANTOPRAZOLE 20 MG TABLET PO SCH ×2 (09:15→21:46)
[2021-02-20] MEDS: FERROUS SO4 325 MG TABLET (FP) PO SCH ×2 (09:15→19:18)
[2021-02-20] MEDS: PRENATAL VITAMINS W/ FOLIC ACID TABLET (FP) PO SCH (09:15)
[2021-02-20] MEDS: BACITRACIN 0.9 GM PACKET TP SCH ×2 (09:15→21:47)
[2021-02-20] MEDS: OLANZapine 10 MG TABLET PO SCH ×2 (09:16→21:47)
[2021-02-20] MEDS: THIAMINE HCL 100 MG TABLET (FP) PO SCH (21:46)
[2021-02-20] MEDS: MELATONIN 5 MG TABLETS PO SCH (21:46)
[2021-02-21] MEDS: FERROUS SO4 325 MG TABLET (FP) PO SCH ×2 (08:26→18:14)
[2021-02-21] MEDS: OLANZapine 10 MG TABLET PO SCH ×2 (10:25→21:18)
[2021-02-21] MEDS: BACITRACIN 0.9 GM PACKET TP SCH ×2 (10:26→21:17)
[2021-02-21] MEDS: PRENATAL VITAMINS W/ FOLIC ACID TABLET (FP) PO SCH (10:26)
[2021-02-21] MEDS: PANTOPRAZOLE 20 MG TABLET PO SCH ×2 (10:27→21:17)
[2021-02-21] MEDS: METHOCARBAMOL 750 MG TABLET PO SCH ×2 (14:50→21:19)
[2021-02-21] MEDS: MELATONIN 5 MG TABLETS PO SCH (21:17)
[2021-02-21] MEDS: THIAMINE HCL 100 MG TABLET (FP) PO SCH (21:18)
[2021-02-22] MEDS: METHOCARBAMOL 750 MG TABLET PO SCH ×3 (06:45→21:46)
[2021-02-22] MEDS: FERROUS SO4 325 MG TABLET (FP) PO SCH ×2 (07:15→18:30)
[2021-02-22] MEDS: PRENATAL VITAMINS W/ FOLIC ACID TABLET (FP) PO SCH (10:12)
[2021-02-22] MEDS: PANTOPRAZOLE 20 MG TABLET PO SCH ×2 (10:13→21:46)
[2021-02-22] MEDS: OLANZapine 10 MG TABLET PO SCH ×2 (10:13→21:45)
[2021-02-22] MEDS: BACITRACIN 0.9 GM PACKET TP SCH ×2 (10:13→21:45)
[2021-02-22] MEDS: THIAMINE HCL 100 MG TABLET (FP) PO SCH (21:45)
[2021-02-22] MEDS: MELATONIN 5 MG TABLETS PO SCH (21:45)
[2021-02-23] MEDS: METHOCARBAMOL 750 MG TABLET PO SCH ×3 (07:07→21:11)
[2021-02-23] MEDS: PRENATAL VITAMINS W/ FOLIC ACID TABLET (FP) PO SCH (10:15)
[2021-02-23] MEDS: PANTOPRAZOLE 20 MG TABLET PO SCH ×2 (10:15→21:10)
[2021-02-23] MEDS: BACITRACIN 0.9 GM PACKET TP SCH ×2 (10:16→21:11)
[2021-02-23] MEDS: FERROUS SO4 325 MG TABLET (FP) PO SCH ×2 (10:16→17:27)
[2021-02-23] MEDS: OLANZapine 10 MG TABLET PO SCH ×2 (10:16→21:10)
[2021-02-23] MEDS: MELATONIN 5 MG TABLETS PO SCH (21:10)
[2021-02-23] MEDS: THIAMINE HCL 100 MG TABLET (FP) PO SCH (21:10)
[2021-02-24] MEDS: METHOCARBAMOL 750 MG TABLET PO SCH ×3 (06:49→21:38)
[2021-02-24] MEDS: FERROUS SO4 325 MG TABLET (FP) PO SCH ×2 (09:58→18:00)
[2021-02-24] MEDS: OLANZapine 10 MG TABLET PO SCH ×2 (09:58→21:38)
[2021-02-24] MEDS: BACITRACIN 0.9 GM PACKET TP SCH ×2 (09:58→21:38)
[2021-02-24] MEDS: PRENATAL VITAMINS W/ FOLIC ACID TABLET (FP) PO SCH (09:58)
[2021-02-24] MEDS: PANTOPRAZOLE 20 MG TABLET PO SCH ×2 (09:58→21:38)
[2021-02-24] MEDS: THIAMINE HCL 100 MG TABLET (FP) PO SCH (21:38)
[2021-02-24] MEDS: MELATONIN 5 MG TABLETS PO SCH (21:38)
[2021-02-25] MEDS: METHOCARBAMOL 750 MG TABLET PO SCH ×2 (07:13→13:10)
[2021-02-25 07:19] VITALS: BP 129/80; PULSE 97; TEMP 97.7
[2021-02-25] MEDS: FERROUS SO4 325 MG TABLET (FP) PO SCH (08:50)
[2021-02-25] MEDS: PRENATAL VITAMINS W/ FOLIC ACID TABLET (FP) PO SCH (10:14)
[2021-02-25] MEDS: OLANZapine 10 MG TABLET PO SCH (10:14)
[2021-02-25] MEDS: PANTOPRAZOLE 20 MG TABLET PO SCH (10:14)
[2021-02-25] MEDS: BACITRACIN 0.9 GM PACKET TP SCH (10:15)
== END 2021-02-25 16:30 | disposition home or self-care (01) | DRG 895 ==
LOC: YASAS 14:34 → Y6N 17:23 → Y3W 02-09 13:08
PROVIDERS: ADMIT Allergy & Immunology; ATTEND Allergy & Immunology
PROC: HZ2ZZZZ Detoxification Services for Substance Abuse Treatment (ICD-10-PCS; principal; 2021-02-06)
PROC: HZ42ZZZ Group Counseling for Substance Abuse Treatment, Cognitive-Behavioral (ICD-10-PCS; 2021-02-09)
DX: F10.230 Alcohol dependence with withdrawal, uncomplicated (principal); F14.20 Cocaine dependence, uncomplicated; F19.282 Other psychoactive substance dependence with psychoactive substance-induced sleep disorder; F10.220 Alcohol dependence with intoxication, uncomplicated; F12.20 Cannabis dependence, uncomplicated; F15.10 Other stimulant abuse, uncomplicated; F17.210 Nicotine dependence, cigarettes, uncomplicated; F25.9 Schizoaffective disorder, unspecified; D64.9 Anemia, unspecified; R00.0 Tachycardia, unspecified; R07.9 Chest pain, unspecified; L84 Corns and callosities; J45.909 Unspecified asthma, uncomplicated; Z88.0 Allergy status to penicillin; Z88.1 Allergy status to other antibiotic agents
CPT/HCPCS: 36415; 80053; 81025; 82728; 82962; 83540; 83550; 85027; 86780; 93005; 93010; C9803; Q0162; U0003; U0005